=== PATIENT | female | born 1955 | race Caucasian/White ===

== ENCOUNTER 2019-04-16 16:14 | Observation (INO) | payer MEDICARE, OTHER ==
[2019-04-16] MEDS ORDERED: Sodium Chloride 0.9% 10 ML Syringe FLUSH PRN (16:27)
[2019-04-16] MEDS ORDERED: Sodium Chloride 0.9% 2.5 ML Syringe FLUSH PRN (16:27)
--- NOTE | 2019-04-16 16:39 | EDM.PDOC ---
ED HPI GENERAL MEDICAL PROBLEM - General Chief Complaint: Gastrointestinal Problem Stated Complaint: BLOOD IN STOOL Time Seen by Provider: 04/16/19 16:15 Source of Information: Reports: Patient History Limitations: Reports: No Limitations - History of Present Illness INITIAL COMMENTS - FREE TEXT/NARRATIVE: History of present illness: [Patient started having bloody stools at 11:00 this morning. He has had several episodes along with lower abdominal pain.She denies any fevers, chills, diarrhea or vomiting. Review of systems: As per history of present illness and below otherwise all systems reviewed and negative. Past medical history: As per history of present illness and as reviewed below otherwise noncontributory. Surgical history: As per history of present illness and as reviewed below otherwise noncontributory. Social history: No reported history of drug or alcohol abuse. Family history: As per history of present illness and as reviewed below otherwise noncontributory. Physical exam: General: Well developed, well nourished in NAD HEENT: Atraumatic, normocephalic, pupils reactive, negative for conjunctival pallor or scleral icterus, mucous membranes moist, throat clear, neck supple, nontender, trachea midline. Lungs: Clear to auscultation, breath sounds equal bilaterally, chest nontender. Heart: S1S2, regular, negative for clicks, rubs, or JVD. Abdomen: NABS, Soft, nondistended, nontender. Negative for masses or hepatosplenomegaly. Negative for costovertebral tenderness. Pelvis: Stable nontender. Genitourinary: Deferred. Recta- guaiac negative Extremities: Atraumatic, negative for cords or calf pain. Neurovascular unremarkable. Neuro: Awake, alert, oriented. Cranial nerves II through XII unremarkable. Cerebellum unremarkable. Motor and sensory unremarkable throughout. Exam nonfocal. Skin:warm and dry Diagnostics: CBC, chemistry, INR, PT PTT, type and screen Therapeutics: None ED Course: Stable, patient had one episode of bright red bloody stool while in the ED.discussed case with Dr. Gibson she does not feel strongly that way. Patient states or goes and she will followent in clinic for consult if she is hospitalized. Dr. Babb agrees to admit for obs. Impression: bright red blood per rectum Prescriptions: none Plan: admit for observation Definitive disposition and diagnosis as appropriate pending reevaluation and review of above. - Related Data Allergies Allergy/AdvReac Type Severity Reaction Status Date / Time nitrofurantoin Allergy Nausea and Verified 04/16/19 21:14 Vomiting Home Meds: Home Meds ClonazePAM [KlonoPIN] 0.5 mg PO BEDTIME 04/16/19 [History] Famotidine 20 mg PO BID 04/16/19 [History] Metoprolol Succinate 25 mg PO BID 04/16/19 [History] Pantoprazole [ProTONIX] 40 mg PO QID 04/16/19 [History] Rosuvastatin [Crestor] 10 mg PO DAILY 04/16/19 [History] Trospium [Sanctura] 20 mg PO DAILY 04/16/19 [History] metFORMIN [Glucophage] 500 mg PO BID 04/16/19 [History] traZODone HCl [Trazodone HCl] 100 mg PO BEDTIME 04/16/19 [History] Past Medical History HEENT History: Reports: Impaired Vision Cardiovascular History: Reports: [place] Respiratory History: Reports: None Gastrointestinal History: Reports: None Genitourinary History: Reports: None 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 Musculoskeletal History: Reports: None Neurological History: Reports: None Psychiatric History: Reports: None Endocrine/Metabolic History: Reports: Diabetes, Type II Hematologic History: Reports: None Immunologic History: Reports: None Oncologic (Cancer) History: Reports: None Dermatologic History: Reports: None - Past Surgical History Head Surgeries/Procedures: Reports: None HEENT Surgical History: Reports: Cataract Surgery Cardiovascular Surgical History: Reports: None Respiratory Surgical History: Reports: None GI Surgical History: Reports: None Female Surgical History: Reports: None Musculoskeletal Surgical History: Reports: None Oncologic Surgical History: Reports: None Dermatological Surgical History: Reports: None Social & Family History - Family History Family Medical History: Noncontributory - Tobacco Use Smoking Status *Q: Never Smoker Second Hand Smoke Exposure: No - Caffeine Use Caffeine Use: Reports: Coffee - Recreational Drug Use Recreational Drug Use: No ED ROS GENERAL - Review of Systems Review Of Systems: See Below ED EXAM, GI/ABD - Physical Exam Exam: See Below Course - Vital Signs Last Recorded V/S: Last Vital Signs Temp 99.9 F 04/17/19 03:48 Pulse 95 04/16/19 16:23 Resp 17 04/17/19 03:48 BP 121/60 04/17/19 03:48 Pulse Ox 91 L 04/17/19 03:48 - Orders/Labs/Meds Orders: Active Orders 24 hr Category Date Time Status Patient Status [ADT] Stat ADT 04/16/19 18:32 Active Sodium Chloride 0.9% [Saline Flush] Med 04/16/19 16:27 Active 10 ml FLUSH ASDIRECTED PRN Sodium Chloride 0.9% [Saline Flush] Med 04/16/19 16:27 Active 2.5 ml FLUSH ASDIRECTED PRN Saline Lock Insert [OM.PC] Stat Oth 04/16/19 16:27 Ordered Medication Orders Clonazepam (Klonopin) 0.5 mg PO BEDTIME CESAR Last Admin: 04/16/19 23:14 Dose: 0.5 mg Pantoprazole Sodium 40 mg/ (Sodium Chloride) 10 mls @ 300 mls/hr IV Q24H CESAR Last Admin: 04/16/19 23:15 Dose: 300 mls/hr Sodium Chloride (Normal Saline) 1,000 mls @ 125 mls/hr IV ASDIRECTED CESAR Insulin Aspart (Novolog) 0 unit SUBCUT Q6H CESAR; Protocol Last Admin: 04/17/19 04:51 Dose: 1 unit Admin: 04/16/19 23:24 Dose: Not Given Sodium Chloride (Saline Flush) 10 ml FLUSH ASDIRECTED PRN PRN Reason: Keep Vein Open Sodium Chloride (Saline Flush) 2.5 ml FLUSH ASDIRECTED PRN PRN Reason: Keep Vein Open Trazodone HCl (Trazodone Hcl) 100 mg PO DAILY [facility] Labs: Laboratory Tests 04/16/19 04/16/19 04/16/19 Range/Units 16:37 16:37 16:37 WBC 11.27 H (4.0-11.0) K/uL RBC 4.64 (4.30-5.90) M/uL Hgb 14.0 (12.0-16.0) g/dL Hct 43.1 (36.0-46.0) % MCV 92.9 (80.0-98.0) fL MCH 30.2 (27.0-32.0) pg MCHC 32.5 (31.0-37.0) g/dL RDW Std Deviation 46.7 (28.0-62.0) fl RDW Coeff of Jyotsna 14 (11.0-15.0) % Plt Count 191 (150-400) K/uL MPV 9.50 (7.40-12.00) fL Neut % (Auto) 84.9 H (48.0-80.0) % Lymph % (Auto) 8.7 L (16.0-40.0) % [place] % (Auto) 6.0 (0.0-15.0) % Eos % (Auto) 0.2 (0.0-7.0) % Baso % (Auto) 0.2 (0.0-1.5) % Neut # (Auto) 9.6 H (1.4-5.7) K/uL Lymph # (Auto) 1.0 (0.6-2.4) K/uL [place] # (Auto) 0.7 (0.0-0.8) K/uL Eos # (Auto) 0.0 (0.0-0.7) K/uL Baso # (Auto) 0.0 (0.0-0.1) K/uL Nucleated RBC % 0.0 /100WBC Nucleated RBCs # 0 K/uL INR 1.01 APTT 24.9 (18.6-31.3) SEC Sodium 143 (136-145) mmol/L Potassium 3.8 (3.5-5.1) mmol/L Chloride 104 (98-107) mmol/L Carbon Dioxide 27.2 (21.0-32.0) mmol/L BUN 22 H (7.0-18.0) mg/dL Creatinine 1.1 H (0.6-1.0) mg/dL Est Cr Clr Drug Dosing 37.96 mL/min Estimated GFR (MDRD) 49.7 ml/min Glucose 171 H (74-106) mg/dL Calcium 9.2 (8.5-10.1) mg/dL Total Bilirubin 0.6 (0.2-1.0) mg/dL AST 21 (15-37) IU/L ALT 27 (14-63) IU/L Alkaline Phosphatase 108 (46-116) U/L Total Protein 8.2 (6.4-8.2) g/dL Albumin 4.1 (3.4-5.0) g/dL Globulin 4.1 H (2.6-4.0) g/dL Albumin/Globulin Ratio 1.0 (0.9-1.6) Blood Type Antibody Screen 04/16/19 Range/Units 16:37 WBC (4.0-11.0) K/uL RBC (4.30-5.90) M/uL Hgb (12.0-16.0) g/dL Hct (36.0-46.0) % MCV (80.0-98.0) fL MCH (27.0-32.0) pg MCHC (31.0-37.0) g/dL RDW Std Deviation (28.0-62.0) fl RDW Coeff of Jyotsna (11.0-15.0) % Plt Count (150-400) K/uL MPV (7.40-12.00) fL Neut % (Auto) (48.0-80.0) % Lymph % (Auto) (16.0-40.0) % [place] % (Auto) (0.0-15.0) % Eos % (Auto) (0.0-7.0) % Baso % (Auto) (0.0-1.5) % Neut # (Auto) (1.4-5.7) K/uL Lymph # (Auto) (0.6-2.4) K/uL [place] # (Auto) (0.0-0.8) K/uL Eos # (Auto) (0.0-0.7) K/uL Baso # (Auto) (0.0-0.1) K/uL Nucleated RBC % /100WBC Nucleated RBCs # K/uL INR APTT (18.6-31.3) SEC Sodium (136-145) mmol/L Potassium (3.5-5.1) mmol/L Chloride (98-107) mmol/L Carbon Dioxide (21.0-32.0) mmol/L BUN (7.0-18.0) mg/dL Creatinine (0.6-1.0) mg/dL Est Cr Clr Drug Dosing mL/min Estimated GFR (MDRD) ml/min Glucose (74-106) mg/dL Calcium (8.5-10.1) mg/dL Total Bilirubin (0.2-1.0) mg/dL AST (15-37) IU/L ALT (14-63) IU/L Alkaline Phosphatase (46-116) U/L Total Protein (6.4-8.2) g/dL Albumin (3.4-5.0) g/dL Globulin (2.6-4.0) g/dL Albumin/Globulin Ratio (0.9-1.6) Blood Type A POSITIVE Antibody Screen NEGATIVE Meds: Medications Generic Name Dose Route Start Last Admin Trade Name Ross PRN Reason Stop Dose Admin Clonazepam 0.5 mg 04/16/19 21:00 04/16/19 23:14 Klonopin PO 0.5 mg BEDTIME CESAR Administration Pantoprazole Sodium 40 mg/ 10 mls @ 300 mls/hr 04/16/19 22:45 04/16/19 23:15 Sodium Chloride IV 300 mls/hr Q24H CESAR Administration Sodium Chloride 1,000 mls @ 125 mls/hr 04/16/19 22:45 Normal Saline IV ASDIRECTED CESAR Insulin Aspart 0 unit 04/16/19 22:45 04/17/19 04:51 Novolog SUBCUT 1 unit Q6H CESAR Administration Protocol Sodium Chloride 10 ml 04/16/19 16:27 Saline Flush FLUSH ASDIRECTED PRN Keep Vein Open Sodium Chloride 2.5 ml 04/16/19 16:27 Saline Flush FLUSH ASDIRECTED PRN Keep Vein Open Trazodone HCl 100 mg 04/17/19 09:00 Trazodone Hcl PO DAILY CESAR Discontinued Medications Generic Name Dose Route Start Last Admin Trade Name Ross PRN Reason Stop Dose Admin Iopamidol 100 ml 04/16/19 17:50 04/16/19 17:50 Isovue Multipack-370 (76%) IVPUSH 04/16/19 17:51 100 ml ONETIME STA Administration Departure - Departure Time of Disposition: 19:03 Disposition: Home, Self-Care 01 Condition: Good Clinical Impression: Bright red blood per rectum - Discharge Information *PRESCRIPTION DRUG MONITORING PROGRAM REVIEWED*: Not Applicable *COPY OF PRESCRIPTION DRUG MONITORING REPORT IN PATIENT PAT: Not Applicable - My Orders Last 24 Hours: My Active Orders 04/16/19 16:27 Sodium Chloride 0.9% [Saline Flush] 10 ml FLUSH ASDIRECTED PRN Sodium Chloride 0.9% [Saline Flush] 2.5 ml FLUSH ASDIRECTED PRN Saline Lock Insert [OM.PC] Stat 04/16/19 18:32 Patient Status [ADT] Stat - Assessment/Plan Last 24 Hours: My Active Orders 04/16/19 16:27 Sodium Chloride 0.9% [Saline Flush] 10 ml FLUSH ASDIRECTED PRN Sodium Chloride 0.9% [Saline Flush] 2.5 ml FLUSH ASDIRECTED PRN Saline Lock Insert [OM.PC] Stat 04/16/19 18:32 Patient Status [ADT] Stat
[2019-04-16 17:16] LABS: CARBON DIOXIDE,CO2 27.2 mmol/L (21.0-32.0); POTASSIUM,K 3.8 mmol/L (3.5-5.1)
[2019-04-16] MEDS ORDERED: Iopamidol 755 MG/ML 500 ML Multipack Bottle IVPUSH STA (17:50)
--- NOTE | 2019-04-16 18:07 | CT ---
HISTORY: Abdominal pain. COMPARISON: None. TECHNIQUE: Axial images were obtained through the abdomen pelvis following 100 cc of Isovue-370 intravenous contrast. FINDINGS: The lung bases are clear. Decreased attenuation of the liver may represent fatty infiltration. The spleen is normal in size. The pancreas, adrenal glands and kidneys are within normal. The duodenal diverticulum is noted the bowel is normal in caliber. No evidence for bowel obstruction. Degenerative changes in the spine. IMPRESSION: No acute abnormality. Please note that all CT scans at this facility use dose modulation, iterative reconstruction, and/or weight-based dosing when appropriate to reduce radiation dose to as low as reasonably achievable. Dictated by Daniela Duffy MD @ Apr 16 2019 6:05PM Signed by Dr. Daniela Duffy @ Apr 16 2019 6:05PM
--- NOTE | 2019-04-16 22:42 | PCM.HP.2 ---
H&P History of Present Illness - General Date of Service: 04/16/19 Admit Problem/Dx: Admission Diagnosis/Problem Admission Diagnosis/Problem Bleeding from anus - History of Present Illness Initial Comments - Free Text/Narative: 64 yo female with pmh of DM and HTN who presents with one day history of blood per rectum. Patient reports since this morning multiple bloody bowel movements. She reports some mild abdominal cramping. CT can of abdomen was normal. - Related Data Allergies/Adverse Reactions: Allergies Allergy/AdvReac Type Severity Reaction Status Date / Time nitrofurantoin Allergy Nausea and Verified 04/16/19 21:14 Vomiting Home Medications: Home Meds ClonazePAM [KlonoPIN] 0.5 mg PO BEDTIME 04/16/19 [History] Famotidine 20 mg PO BID 04/16/19 [History] Metoprolol Succinate 25 mg PO BID 04/16/19 [History] Pantoprazole [ProTONIX] 40 mg PO QID 04/16/19 [History] Rosuvastatin [Crestor] 10 mg PO DAILY 04/16/19 [History] Trospium [Sanctura] 20 mg PO DAILY 04/16/19 [History] metFORMIN [Glucophage] 500 mg PO BID 04/16/19 [History] traZODone HCl [Trazodone HCl] 100 mg PO BEDTIME 04/16/19 [History] Past Medical History HEENT History: Reports: Impaired Vision Cardiovascular History: Reports: [place] Respiratory History: Reports: None Gastrointestinal History: Reports: None Genitourinary History: Reports: None 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 Musculoskeletal History: Reports: None Neurological History: Reports: None Psychiatric History: Reports: None Endocrine/Metabolic History: Reports: Diabetes, Type II Hematologic History: Reports: None Immunologic History: Reports: None Oncologic (Cancer) History: Reports: None Dermatologic History: Reports: None - Past Surgical History Head Surgeries/Procedures: Reports: None HEENT Surgical History: Reports: Cataract Surgery Cardiovascular Surgical History: Reports: None Respiratory Surgical History: Reports: None GI Surgical History: Reports: None Female Surgical History: Reports: None Musculoskeletal Surgical History: Reports: None Oncologic Surgical History: Reports: None Dermatological Surgical History: Reports: None Social & Family History - Family History Family Medical History: Noncontributory - Tobacco Use Smoking Status *Q: Former Smoker Used Tobacco, but Quit: Yes Month/Year Tobacco Last Used: 1990 Second Hand Smoke Exposure: Yes - Caffeine Use Caffeine Use: Reports: Coffee - Recreational Drug Use Recreational Drug Use: No H&P Review of Systems - Review of Systems: Review Of Systems: ROS reveals no pertinent complaints other than HPI. Exam - Exam Exam: See Below - Vital Signs Vital Signs: Last Vital Signs Temp 36.5 C 04/16/19 19:34 Pulse 95 04/16/19 16:23 Resp 16 04/16/19 19:34 BP 122/59 L 04/16/19 19:34 Pulse Ox 94 L 04/16/19 19:34 Weight: 83.4 kg - Exam General: Alert, Oriented HEENT: Mucosa Moist & [place] Neck: Supple, Trachea Midline Lungs: Clear to Auscultation, Normal Respiratory Effort Cardiovascular: Regular Rate, Regular Rhythm GI/Abdominal Exam: Normal Bowel Sounds, Soft, Non-Tender Rectal (Female) Exam: Other (deferred as was just performed in ED) Extremities: Non-Tender, No Pedal Edema Skin: Warm, Dry, Intact - Patient Data Lab Results Last 24 hrs: Laboratory Results - last 24 hr 04/16/19 04/16/19 04/16/19 Range/Units 16:37 16:37 16:37 WBC 11.27 H (4.0-11.0) K/uL RBC 4.64 (4.30-5.90) M/uL Hgb 14.0 (12.0-16.0) g/dL Hct 43.1 (36.0-46.0) % MCV 92.9 (80.0-98.0) fL MCH 30.2 (27.0-32.0) pg MCHC 32.5 (31.0-37.0) g/dL RDW Std Deviation 46.7 (28.0-62.0) fl RDW Coeff of Jyotsna 14 (11.0-15.0) % Plt Count 191 (150-400) K/uL MPV 9.50 (7.40-12.00) fL Neut % (Auto) 84.9 H (48.0-80.0) % Lymph % (Auto) 8.7 L (16.0-40.0) % [place] % (Auto) 6.0 (0.0-15.0) % Eos % (Auto) 0.2 (0.0-7.0) % Baso % (Auto) 0.2 (0.0-1.5) % Neut # (Auto) 9.6 H (1.4-5.7) K/uL Lymph # (Auto) 1.0 (0.6-2.4) K/uL [place] # (Auto) 0.7 (0.0-0.8) K/uL Eos # (Auto) 0.0 (0.0-0.7) K/uL Baso # (Auto) 0.0 (0.0-0.1) K/uL Nucleated RBC % 0.0 /100WBC Nucleated RBCs # 0 K/uL INR 1.01 APTT 24.9 (18.6-31.3) SEC Sodium 143 (136-145) mmol/L Potassium 3.8 (3.5-5.1) mmol/L Chloride 104 (98-107) mmol/L Carbon Dioxide 27.2 (21.0-32.0) mmol/L BUN 22 H (7.0-18.0) mg/dL Creatinine 1.1 H (0.6-1.0) mg/dL Est Cr Clr Drug Dosing 37.96 mL/min Estimated GFR (MDRD) 49.7 ml/min Glucose 171 H (74-106) mg/dL Calcium 9.2 (8.5-10.1) mg/dL Total Bilirubin 0.6 (0.2-1.0) mg/dL AST 21 (15-37) IU/L ALT 27 (14-63) IU/L Alkaline Phosphatase 108 (46-116) U/L Total Protein 8.2 (6.4-8.2) g/dL Albumin 4.1 (3.4-5.0) g/dL Globulin 4.1 H (2.6-4.0) g/dL Albumin/Globulin Ratio 1.0 (0.9-1.6) Blood Type Antibody Screen 04/16/19 Range/Units 16:37 WBC (4.0-11.0) K/uL RBC (4.30-5.90) M/uL Hgb (12.0-16.0) g/dL Hct (36.0-46.0) % MCV (80.0-98.0) fL MCH (27.0-32.0) pg MCHC (31.0-37.0) g/dL RDW Std Deviation (28.0-62.0) fl RDW Coeff of Jyotsna (11.0-15.0) % Plt Count (150-400) K/uL MPV (7.40-12.00) fL Neut % (Auto) (48.0-80.0) % Lymph % (Auto) (16.0-40.0) % [place] % (Auto) (0.0-15.0) % Eos % (Auto) (0.0-7.0) % Baso % (Auto) (0.0-1.5) % Neut # (Auto) (1.4-5.7) K/uL Lymph # (Auto) (0.6-2.4) K/uL [place] # (Auto) (0.0-0.8) K/uL Eos # (Auto) (0.0-0.7) K/uL Baso # (Auto) (0.0-0.1) K/uL Nucleated RBC % /100WBC Nucleated RBCs # K/uL INR APTT (18.6-31.3) SEC Sodium (136-145) mmol/L Potassium (3.5-5.1) mmol/L Chloride (98-107) mmol/L Carbon Dioxide (21.0-32.0) mmol/L BUN (7.0-18.0) mg/dL Creatinine (0.6-1.0) mg/dL Est Cr Clr Drug Dosing mL/min Estimated GFR (MDRD) ml/min Glucose (74-106) mg/dL Calcium (8.5-10.1) mg/dL Total Bilirubin (0.2-1.0) mg/dL AST (15-37) IU/L ALT (14-63) IU/L Alkaline Phosphatase (46-116) U/L Total Protein (6.4-8.2) g/dL Albumin (3.4-5.0) g/dL Globulin (2.6-4.0) g/dL Albumin/Globulin Ratio (0.9-1.6) Blood Type A POSITIVE Antibody Screen NEGATIVE Result Diagrams: 04/17/19 05:40 04/17/19 05:40 Problem List Initiated/Reviewed/Updated: Yes Orders Last 24hrs: Active Orders 24 hr Category Date Time Status Patient Status [ADT] Stat ADT 04/16/19 18:32 Active Antiembolic Devices [RC] PER UNIT ROUTINE Care 04/16/19 22:37 Ordered Blood Glucose Check, Bedside [RC] Q6HR Care 04/16/19 22:36 Ordered Notify Provider Consults [RC] ASDIRECTED Care 04/16/19 22:24 Active Oxygen Therapy [RC] PRN Care 04/16/19 22:36 Ordered Up ad Uma [RC] ASDIRECTED Care 04/16/19 22:36 Ordered VTE/DVT Education [RC] PER UNIT ROUTINE Care 04/16/19 22:36 Ordered Vital Signs [RC] Q4H Care 04/16/19 22:36 Ordered Consult to Physician [CONS] Routine Cons 04/16/19 22:23 Active Nothing per Oral Now Diet [DIET] Diet 04/16/19 Breakfast Ordered BASIC METABOLIC PANEL,BMP [CHEM] AM Lab 04/17/19 05:11 Ordered CBC WITH AUTO DIFF [HEME] AM Lab 04/17/19 05:11 Ordered CBC WITH AUTO DIFF [HEME] Routine Lab 04/16/19 22:36 Ordered ClonazePAM [KlonoPIN] Med 04/16/19 21:00 Ordered 0.5 mg PO BEDTIME Pantoprazole [ProTONIX IV] 40 mg Med 04/16/19 22:45 Ordered Sodium Chloride 0.9% [Normal Saline] 10 ml IV Q24H Sodium Chloride 0.9% [Saline Flush] Med 04/16/19 16:27 Active 10 ml FLUSH ASDIRECTED PRN Sodium Chloride 0.9% [Saline Flush] Med 04/16/19 16:27 Active 2.5 ml FLUSH ASDIRECTED PRN traZODone HCl Med 04/17/19 09:00 Ordered 100 mg PO DAILY Saline Lock Insert [OM.PC] Stat Oth 04/16/19 16:27 Ordered Sequential Compression Device [OM.PC] Per Unit Routine Oth 04/16/19 22:37 Ordered Resuscitation Status Routine Resus Stat 04/16/19 22:36 Ordered Medication Orders Clonazepam (Klonopin) 0.5 mg PO BEDTIME CESAR Pantoprazole Sodium 40 mg/ (Sodium Chloride) 10 mls @ 300 mls/hr IV Q24H CESAR Sodium Chloride (Saline Flush) 10 ml FLUSH ASDIRECTED PRN PRN Reason: Keep Vein Open Sodium Chloride (Saline Flush) 2.5 ml FLUSH ASDIRECTED PRN PRN Reason: Keep Vein Open Trazodone HCl (Trazodone Hcl) 100 mg PO DAILY CESAR Assessment/Plan Comment:: 64 yo female admitted with lower GI Bleed. Currently hemodynamically stable. We will trend Hgb, keep NPO and hydrate with IV fluids. Dr. Gibson has been consulted.
[2019-04-16] MEDS: ClonazePAM 0.5 MG Tab PO SCH (23:14)
[2019-04-16] MEDS: Pantoprazole 40 MG in Sodium Chloride 0.9% 10 ML IV SCH (23:15)
[2019-04-16] MEDS: Insulin Aspart 100 Units/ML 3 ML Pen SUBCUT SCH (23:24)
[2019-04-17] MEDS: Insulin Aspart 100 Units/ML 3 ML Pen SUBCUT SCH ×4 (04:51→22:39)
[2019-04-17 06:07] LABS: BLOOD UREA NITROGEN,BUN 18 mg/dL (7.0-18.0); CARBON DIOXIDE,CO2 29.2 mmol/L (21.0-32.0); CHLORIDE,CL 103 mmol/L (98-107); GLUCOSE RANDOM 170 mg/dL (74-106); POTASSIUM,K 3.9 mmol/L (3.5-5.1); SODIUM,NA 141 mmol/L (136-145)
[2019-04-17] MEDS: Sodium Chloride 0.9% 1,000 ML IV SCH ×2 (08:21→17:01)
[2019-04-17] MEDS ORDERED: Bisacodyl 5 MG Tab PO ONE (10:29)
--- NOTE | 2019-04-17 11:01 | PCM.PN ---
- General Info Date of Service: 04/17/19 Subjective Update: no acute events overnight. had BM this morning. States bright red blood on stool. No dark stools. no history of hemorrhoids. - Patient Data Vitals - Most Recent: Last Vital Signs Temp 37.7 C 04/17/19 03:48 Pulse 95 04/16/19 16:23 Resp 17 04/17/19 03:48 BP 121/60 04/17/19 03:48 Pulse Ox 91 L 04/17/19 03:48 Weight - Most Recent: 83.4 kg I&O - Last 24 Hours: Intake & Output 04/16/19 04/17/19 04/17/19 22:59 06:59 14:59 Output Total 500 Balance -500 Lab Results Last 24 Hours: Laboratory Results - last 24 hr 04/16/19 04/16/19 04/16/19 Range/Units 16:37 16:37 16:37 WBC 11.27 H (4.0-11.0) K/uL RBC 4.64 (4.30-5.90) M/uL Hgb 14.0 (12.0-16.0) g/dL Hct 43.1 (36.0-46.0) % MCV 92.9 (80.0-98.0) fL MCH 30.2 (27.0-32.0) pg MCHC 32.5 (31.0-37.0) g/dL RDW Std Deviation 46.7 (28.0-62.0) fl RDW Coeff of Jyotsna 14 (11.0-15.0) % Plt Count 191 (150-400) K/uL MPV 9.50 (7.40-12.00) fL Neut % (Auto) 84.9 H (48.0-80.0) % Lymph % (Auto) 8.7 L (16.0-40.0) % [place] % (Auto) 6.0 (0.0-15.0) % Eos % (Auto) 0.2 (0.0-7.0) % Baso % (Auto) 0.2 (0.0-1.5) % Neut # (Auto) 9.6 H (1.4-5.7) K/uL Lymph # (Auto) 1.0 (0.6-2.4) K/uL [place] # (Auto) 0.7 (0.0-0.8) K/uL Eos # (Auto) 0.0 (0.0-0.7) K/uL Baso # (Auto) 0.0 (0.0-0.1) K/uL Nucleated RBC % 0.0 /100WBC Nucleated RBCs # 0 K/uL INR 1.01 APTT 24.9 (18.6-31.3) SEC Sodium 143 (136-145) mmol/L Potassium 3.8 (3.5-5.1) mmol/L Chloride 104 (98-107) mmol/L Carbon Dioxide 27.2 (21.0-32.0) mmol/L BUN 22 H (7.0-18.0) mg/dL Creatinine 1.1 H (0.6-1.0) mg/dL Est Cr Clr Drug Dosing 37.96 mL/min Estimated GFR (MDRD) 49.7 ml/min Glucose 171 H (74-106) mg/dL POC Glucose (60-110) mg/dL Calcium 9.2 (8.5-10.1) mg/dL Total Bilirubin 0.6 (0.2-1.0) mg/dL AST 21 (15-37) IU/L ALT 27 (14-63) IU/L Alkaline Phosphatase 108 (46-116) U/L Total Protein 8.2 (6.4-8.2) g/dL Albumin 4.1 (3.4-5.0) g/dL Globulin 4.1 H (2.6-4.0) g/dL Albumin/Globulin Ratio 1.0 (0.9-1.6) Blood Type Antibody Screen 04/16/19 04/16/19 04/16/19 Range/Units 16:37 23:05 23:23 WBC 10.98 (4.0-11.0) K/uL RBC 4.50 (4.30-5.90) M/uL Hgb 13.5 (12.0-16.0) g/dL Hct 41.7 (36.0-46.0) % MCV 92.7 (80.0-98.0) fL MCH 30.0 (27.0-32.0) pg MCHC 32.4 (31.0-37.0) g/dL RDW Std Deviation 47.1 (28.0-62.0) fl RDW Coeff of Jyotsna 14 (11.0-15.0) % Plt Count 173 (150-400) K/uL MPV 9.10 (7.40-12.00) fL Neut % (Auto) 79.6 (48.0-80.0) % Lymph % (Auto) 11.7 L (16.0-40.0) % [place] % (Auto) 8.1 (0.0-15.0) % Eos % (Auto) 0.5 (0.0-7.0) % Baso % (Auto) 0.1 (0.0-1.5) % Neut # (Auto) 8.8 H (1.4-5.7) K/uL Lymph # (Auto) 1.3 (0.6-2.4) K/uL [place] # (Auto) 0.9 H (0.0-0.8) K/uL Eos # (Auto) 0.1 (0.0-0.7) K/uL Baso # (Auto) 0.0 (0.0-0.1) K/uL Nucleated RBC % 0.0 /100WBC Nucleated RBCs # 0 K/uL INR APTT (18.6-31.3) SEC Sodium (136-145) mmol/L Potassium (3.5-5.1) mmol/L Chloride (98-107) mmol/L Carbon Dioxide (21.0-32.0) mmol/L BUN (7.0-18.0) mg/dL Creatinine (0.6-1.0) mg/dL Est Cr Clr Drug Dosing mL/min Estimated GFR (MDRD) ml/min Glucose (74-106) mg/dL POC Glucose 124 H (60-110) mg/dL Calcium (8.5-10.1) mg/dL Total Bilirubin (0.2-1.0) mg/dL AST (15-37) IU/L ALT (14-63) IU/L Alkaline Phosphatase (46-116) U/L Total Protein (6.4-8.2) g/dL Albumin (3.4-5.0) g/dL Globulin (2.6-4.0) g/dL Albumin/Globulin Ratio (0.9-1.6) Blood Type A POSITIVE Antibody Screen NEGATIVE 11/10/19 11/10/19 11/10/19 Range/Units 04:47 05:40 05:40 WBC 11.44 H (4.0-11.0) K/uL RBC 4.41 (4.30-5.90) M/uL Hgb 13.3 (12.0-16.0) g/dL Hct 40.2 (36.0-46.0) % MCV 91.2 (80.0-98.0) fL MCH 30.2 (27.0-32.0) pg MCHC 33.1 (31.0-37.0) g/dL RDW Std Deviation 46.3 (28.0-62.0) fl RDW Coeff of Jyotsna 14 (11.0-15.0) % Plt Count 190 (150-400) K/uL MPV 9.40 (7.40-12.00) fL Neut % (Auto) 81.9 H (48.0-80.0) % Lymph % (Auto) 9.4 L (16.0-40.0) % [place] % (Auto) 8.4 (0.0-15.0) % Eos % (Auto) 0.2 (0.0-7.0) % Baso % (Auto) 0.1 (0.0-1.5) % Neut # (Auto) 9.4 H (1.4-5.7) K/uL Lymph # (Auto) 1.1 (0.6-2.4) K/uL [place] # (Auto) 1.0 H (0.0-0.8) K/uL Eos # (Auto) 0.0 (0.0-0.7) K/uL Baso # (Auto) 0.0 (0.0-0.1) K/uL Nucleated RBC % 0.0 /100WBC Nucleated RBCs # 0 K/uL INR APTT (18.6-31.3) SEC Sodium 141 (136-145) mmol/L Potassium 3.9 (3.5-5.1) mmol/L Chloride 103 (98-107) mmol/L Carbon Dioxide 29.2 (21.0-32.0) mmol/L BUN 18 (7.0-18.0) mg/dL Creatinine 0.9 (0.6-1.0) mg/dL Est Cr Clr Drug Dosing 46.45 mL/min Estimated GFR (MDRD) > 60.0 ml/min Glucose 170 H (74-106) mg/dL POC Glucose 161 H (60-110) mg/dL Calcium 8.7 (8.5-10.1) mg/dL Total Bilirubin (0.2-1.0) mg/dL AST (15-37) IU/L ALT (14-63) IU/L Alkaline Phosphatase (46-116) U/L Total Protein (6.4-8.2) g/dL Albumin (3.4-5.0) g/dL Globulin (2.6-4.0) g/dL Albumin/Globulin Ratio (0.9-1.6) Blood Type Antibody Screen Rickey Results Last 24 Hours: Microbiology 04/17/19 01:25 Campylobacter Antigen Assay - Final Stool / Feces NEGATIVE CAMPYLOBACTER AG REFERENCE RANGE: NEGATIVE 04/17/19 01:25 Stool for WBCs - Final Stool / Feces POSITIVE FOR WBC'S REFERENCE RANGE: NO WBC SEEN Stool Occult Blood (RICKEY) - Final Med Orders - Current: Current Medications Clonazepam (Klonopin) 0.5 mg PO BEDTIME [facility] Last Admin: 04/16/19 23:14 Dose: 0.5 mg Pantoprazole Sodium 40 mg/ (Sodium Chloride) 10 mls @ 300 mls/hr IV Q24H [facility] Last Admin: 04/16/19 23:15 Dose: 300 mls/hr Sodium Chloride (Normal Saline) 1,000 mls @ 125 mls/hr IV ASDIRECTED [facility] Last Admin: 04/17/19 08:21 Dose: 125 mls/hr Insulin Aspart (Novolog) 0 unit SUBCUT Q6H [facility]; Protocol Last Admin: 04/17/19 04:51 Dose: 1 unit Polyethylene Glycol (Miralax) 119 gm PO ONETIME ONE Stop: 04/17/19 12:01 Polyethylene Glycol (Miralax) 119 gm PO ONETIME ONE Stop: 04/17/19 16:01 Sodium Chloride (Saline Flush) 10 ml FLUSH ASDIRECTED PRN PRN Reason: Keep Vein Open Sodium Chloride (Saline Flush) 2.5 ml FLUSH ASDIRECTED PRN PRN Reason: Keep Vein Open Trazodone HCl (Trazodone) 100 mg PO BEDTIME [facility] Discontinued Medications Bisacodyl (Dulcolax) 20 mg PO ONETIME ONE Stop: 04/17/19 10:30 Iopamidol (Isovue Multipack-370 (76%)) 100 ml IVPUSH ONETIME STA Stop: 04/16/19 17:51 Last Admin: 04/16/19 17:50 Dose: 100 ml - Exam General: Alert, Oriented, Cooperative, No Acute Distress Lungs: Clear to Auscultation, Normal Respiratory Effort. No: Crackles, Wheezing Cardiovascular: Regular Rate, Regular Rhythm GI/Abdominal Exam: Normal Bowel Sounds, Soft, Non-Tender Extremities: Normal Inspection, No Pedal Edema - Problem List Review Problem List Initiated/Reviewed/Updated: Yes - Plan Plan:: A: 1. Bright red blood per rectum 2. constipation p: 1. NPO. Continue protonix. Dr. blanca plans for colonoscopy tomorrow morning. Dispo: 1-2 days.
[2019-04-17 11:31] LABS: HEMOGLOBIN A1C 6.6 % (4.5-6.2)
[2019-04-17] MEDS ORDERED: Polyethylene Glycol 3350 Powder 17 GM Packet PO ONE ×2 (12:00→16:00)
--- NOTE | 2019-04-17 12:58 | PCM.CONS ---
H&P History of Present Illness - General Date of Service: 04/17/19 Admit Problem/Dx: Admission Diagnosis/Problem Admission Diagnosis/Problem Bleeding from anus Source of Information: Patient History Limitations: Reports: No Limitations - History of Present Illness Initial Comments - Free Text/Narative: Patient is a 64 year old female who presented with episodes of BRBPR starting today. She has a family history of her sister having colon cancer. She thinks her last colonoscopy was 5 years ago. She had 2 bowel movements with blood streaks on the stool. She had some lower abdominal discomfort. She came to the ER. CBC showed a mildly elevated WBC but a normal hemoglobin. She had a normal CT scan of the abdomen. While in the ER she had one bloody BM. She was admitted to medicine. She had 2 more BMs overnight. Her hemoglobin has remained stable. She complains of dizziness when first sitting up in bed. Denies melena. - Related Data Allergies/Adverse Reactions: Allergies Allergy/AdvReac Type Severity Reaction Status Date / Time nitrofurantoin Allergy Nausea and Verified 04/16/19 21:14 Vomiting Home Medications: Home Meds ClonazePAM [KlonoPIN] 0.5 mg PO BEDTIME 04/16/19 [History] Famotidine 20 mg PO BID 04/16/19 [History] Metoprolol Succinate 25 mg PO BID 04/16/19 [History] Pantoprazole [ProTONIX] 40 mg PO QID 04/16/19 [History] Rosuvastatin [Crestor] 10 mg PO DAILY 04/16/19 [History] Trospium [Sanctura] 20 mg PO DAILY 04/16/19 [History] metFORMIN [Glucophage] 500 mg PO BID 04/16/19 [History] traZODone HCl [Trazodone HCl] 100 mg PO BEDTIME 04/16/19 [History] Past Medical History HEENT History: Reports: Impaired Vision Cardiovascular History: Reports: MS Respiratory History: Reports: None Gastrointestinal History: Reports: None Genitourinary History: Reports: None 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 Musculoskeletal History: Reports: None Neurological History: Reports: None Psychiatric History: Reports: None Endocrine/Metabolic History: Reports: Diabetes, Type II Hematologic History: Reports: None Immunologic History: Reports: None Oncologic (Cancer) History: Reports: None Dermatologic History: Reports: None - Past Surgical History Head Surgeries/Procedures: Reports: None HEENT Surgical History: Reports: Cataract Surgery Cardiovascular Surgical History: Reports: None Respiratory Surgical History: Reports: None GI Surgical History: Reports: Colonoscopy Female Surgical History: Reports: None Musculoskeletal Surgical History: Reports: None Oncologic Surgical History: Reports: None Dermatological Surgical History: Reports: None Social & Family History - Family History Family Medical History: Noncontributory - Tobacco Use Smoking Status *Q: Never Smoker Used Tobacco, but Quit: Yes Month/Year Tobacco Last Used: 1990 Second Hand Smoke Exposure: No - Caffeine Use Caffeine Use: Reports: Coffee - Recreational Drug Use Recreational Drug Use: No H&P Review of Systems - Review of Systems: Review Of Systems: ROS reveals no pertinent complaints other than HPI. Exam - Exam Exam: See Below - Vital Signs Vital Signs: Last Vital Signs Temp 36.9 C 04/17/19 12:00 Pulse 87 04/17/19 12:00 Resp 15 04/17/19 12:00 BP 121/64 04/17/19 12:00 Pulse Ox 95 04/17/19 12:00 Weight: 83.4 kg - Exam General: Alert, Oriented, Cooperative HEENT: Conjunctiva Clear, Mucosa Moist & [place], Posterior Pharynx Clear Neck: Supple, Trachea Midline Lungs: Clear to Auscultation, Normal Respiratory Effort Cardiovascular: Regular Rate, Regular Rhythm GI/Abdominal Exam: Normal Bowel Sounds, Soft, Non-Tender, No Distention, No Mass (Female) Exam: Normal External Exam Rectal (Female) Exam: Normal Exam, Normal Rectal Tone, Heme - Stool Skin: Warm, Dry, Intact Neuro Extensive - Mental Status: Alert, Oriented x3 - Patient Data Lab Results Last 24 hrs: Laboratory Results - last 24 hr 04/16/19 04/16/19 04/16/19 Range/Units 16:37 16:37 16:37 WBC 11.27 H (4.0-11.0) K/uL RBC 4.64 (4.30-5.90) M/uL Hgb 14.0 (12.0-16.0) g/dL Hct 43.1 (36.0-46.0) % MCV 92.9 (80.0-98.0) fL MCH 30.2 (27.0-32.0) pg MCHC 32.5 (31.0-37.0) g/dL RDW Std Deviation 46.7 (28.0-62.0) fl RDW Coeff of Jyotsna 14 (11.0-15.0) % Plt Count 191 (150-400) K/uL MPV 9.50 (7.40-12.00) fL Neut % (Auto) 84.9 H (48.0-80.0) % Lymph % (Auto) 8.7 L (16.0-40.0) % [place] % (Auto) 6.0 (0.0-15.0) % Eos % (Auto) 0.2 (0.0-7.0) % Baso % (Auto) 0.2 (0.0-1.5) % Neut # (Auto) 9.6 H (1.4-5.7) K/uL Lymph # (Auto) 1.0 (0.6-2.4) K/uL [place] # (Auto) 0.7 (0.0-0.8) K/uL Eos # (Auto) 0.0 (0.0-0.7) K/uL Baso # (Auto) 0.0 (0.0-0.1) K/uL Nucleated RBC % 0.0 /100WBC Nucleated RBCs # 0 K/uL INR 1.01 APTT 24.9 (18.6-31.3) SEC Sodium 143 (136-145) mmol/L Potassium 3.8 (3.5-5.1) mmol/L Chloride 104 (98-107) mmol/L Carbon Dioxide 27.2 (21.0-32.0) mmol/L BUN 22 H (7.0-18.0) mg/dL Creatinine 1.1 H (0.6-1.0) mg/dL Est Cr Clr Drug Dosing 37.96 mL/min Estimated GFR (MDRD) 49.7 ml/min Glucose 171 H (74-106) mg/dL POC Glucose (60-110) mg/dL Hemoglobin A1c (4.5-6.2) % Calcium 9.2 (8.5-10.1) mg/dL Total Bilirubin 0.6 (0.2-1.0) mg/dL AST 21 (15-37) IU/L ALT 27 (14-63) IU/L Alkaline Phosphatase 108 (46-116) U/L Total Protein 8.2 (6.4-8.2) g/dL Albumin 4.1 (3.4-5.0) g/dL Globulin 4.1 H (2.6-4.0) g/dL Albumin/Globulin Ratio 1.0 (0.9-1.6) Blood Type Antibody Screen 04/16/19 04/16/19 04/16/19 Range/Units 16:37 23:05 23:23 WBC 10.98 (4.0-11.0) K/uL RBC 4.50 (4.30-5.90) M/uL Hgb 13.5 (12.0-16.0) g/dL Hct 41.7 (36.0-46.0) % MCV 92.7 (80.0-98.0) fL MCH 30.0 (27.0-32.0) pg MCHC 32.4 (31.0-37.0) g/dL RDW Std Deviation 47.1 (28.0-62.0) fl RDW Coeff of Jyotsna 14 (11.0-15.0) % Plt Count 173 (150-400) K/uL MPV 9.10 (7.40-12.00) fL Neut % (Auto) 79.6 (48.0-80.0) % Lymph % (Auto) 11.7 L (16.0-40.0) % [place] % (Auto) 8.1 (0.0-15.0) % Eos % (Auto) 0.5 (0.0-7.0) % Baso % (Auto) 0.1 (0.0-1.5) % Neut # (Auto) 8.8 H (1.4-5.7) K/uL Lymph # (Auto) 1.3 (0.6-2.4) K/uL [place] # (Auto) 0.9 H (0.0-0.8) K/uL Eos # (Auto) 0.1 (0.0-0.7) K/uL Baso # (Auto) 0.0 (0.0-0.1) K/uL Nucleated RBC % 0.0 /100WBC Nucleated RBCs # 0 K/uL INR APTT (18.6-31.3) SEC Sodium (136-145) mmol/L Potassium (3.5-5.1) mmol/L Chloride (98-107) mmol/L Carbon Dioxide (21.0-32.0) mmol/L BUN (7.0-18.0) mg/dL Creatinine (0.6-1.0) mg/dL Est Cr Clr Drug Dosing mL/min Estimated GFR (MDRD) ml/min Glucose (74-106) mg/dL POC Glucose 124 H (60-110) mg/dL Hemoglobin A1c (4.5-6.2) % Calcium (8.5-10.1) mg/dL Total Bilirubin (0.2-1.0) mg/dL AST (15-37) IU/L ALT (14-63) IU/L Alkaline Phosphatase (46-116) U/L Total Protein (6.4-8.2) g/dL Albumin (3.4-5.0) g/dL Globulin (2.6-4.0) g/dL Albumin/Globulin Ratio (0.9-1.6) Blood Type A POSITIVE Antibody Screen NEGATIVE 04/17/19 04/17/19 04/17/19 Range/Units 04:47 05:40 05:40 WBC 11.44 H (4.0-11.0) K/uL RBC 4.41 (4.30-5.90) M/uL Hgb 13.3 (12.0-16.0) g/dL Hct 40.2 (36.0-46.0) % MCV 91.2 (80.0-98.0) fL MCH 30.2 (27.0-32.0) pg MCHC 33.1 (31.0-37.0) g/dL RDW Std Deviation 46.3 (28.0-62.0) fl RDW Coeff of Jyotsna 14 (11.0-15.0) % Plt Count 190 (150-400) K/uL MPV 9.40 (7.40-12.00) fL Neut % (Auto) 81.9 H (48.0-80.0) % Lymph % (Auto) 9.4 L (16.0-40.0) % [place] % (Auto) 8.4 (0.0-15.0) % Eos % (Auto) 0.2 (0.0-7.0) % Baso % (Auto) 0.1 (0.0-1.5) % Neut # (Auto) 9.4 H (1.4-5.7) K/uL Lymph # (Auto) 1.1 (0.6-2.4) K/uL [place] # (Auto) 1.0 H (0.0-0.8) K/uL Eos # (Auto) 0.0 (0.0-0.7) K/uL Baso # (Auto) 0.0 (0.0-0.1) K/uL Nucleated RBC % 0.0 /100WBC Nucleated RBCs # 0 K/uL INR APTT (18.6-31.3) SEC Sodium 141 (136-145) mmol/L Potassium 3.9 (3.5-5.1) mmol/L Chloride 103 (98-107) mmol/L Carbon Dioxide 29.2 (21.0-32.0) mmol/L BUN 18 (7.0-18.0) mg/dL Creatinine 0.9 (0.6-1.0) mg/dL Est Cr Clr Drug Dosing 46.45 mL/min Estimated GFR (MDRD) > 60.0 ml/min Glucose 170 H (74-106) mg/dL POC Glucose 161 H (60-110) mg/dL Hemoglobin A1c (4.5-6.2) % Calcium 8.7 (8.5-10.1) mg/dL Total Bilirubin (0.2-1.0) mg/dL AST (15-37) IU/L ALT (14-63) IU/L Alkaline Phosphatase (46-116) U/L Total Protein (6.4-8.2) g/dL Albumin (3.4-5.0) g/dL Globulin (2.6-4.0) g/dL Albumin/Globulin Ratio (0.9-1.6) Blood Type Antibody Screen 04/17/19 04/17/19 Range/Units 05:40 11:23 WBC (4.0-11.0) K/uL RBC (4.30-5.90) M/uL Hgb (12.0-16.0) g/dL Hct (36.0-46.0) % MCV (80.0-98.0) fL MCH (27.0-32.0) pg MCHC (31.0-37.0) g/dL RDW Std Deviation (28.0-62.0) fl RDW Coeff of Jyotsna (11.0-15.0) % Plt Count (150-400) K/uL MPV (7.40-12.00) fL Neut % (Auto) (48.0-80.0) % Lymph % (Auto) (16.0-40.0) % [place] % (Auto) (0.0-15.0) % Eos % (Auto) (0.0-7.0) % Baso % (Auto) (0.0-1.5) % Neut # (Auto) (1.4-5.7) K/uL Lymph # (Auto) (0.6-2.4) K/uL [place] # (Auto) (0.0-0.8) K/uL Eos # (Auto) (0.0-0.7) K/uL Baso # (Auto) (0.0-0.1) K/uL Nucleated RBC % /100WBC Nucleated RBCs # K/uL INR APTT (18.6-31.3) SEC Sodium (136-145) mmol/L Potassium (3.5-5.1) mmol/L Chloride (98-107) mmol/L Carbon Dioxide (21.0-32.0) mmol/L BUN (7.0-18.0) mg/dL Creatinine (0.6-1.0) mg/dL Est Cr Clr Drug Dosing mL/min Estimated GFR (MDRD) ml/min Glucose (74-106) mg/dL POC Glucose 121 H (60-110) mg/dL Hemoglobin A1c 6.6 H (4.5-6.2) % Calcium (8.5-10.1) mg/dL Total Bilirubin (0.2-1.0) mg/dL AST (15-37) IU/L ALT (14-63) IU/L Alkaline Phosphatase (46-116) U/L Total Protein (6.4-8.2) g/dL Albumin (3.4-5.0) g/dL Globulin (2.6-4.0) g/dL Albumin/Globulin Ratio (0.9-1.6) Blood Type Antibody Screen Result Diagrams: 04/17/19 05:40 04/17/19 05:40 Rickey Results Last 24 hrs: Microbiology 04/17/19 01:25 Campylobacter Antigen Assay - Final Stool / Feces NEGATIVE CAMPYLOBACTER AG REFERENCE RANGE: NEGATIVE 04/17/19 01:25 Stool for WBCs - Final Stool / Feces POSITIVE FOR WBC'S REFERENCE RANGE: NO WBC SEEN Stool Occult Blood (RICKEY) - Final Consult PN Assessment/Plan (1) Bright red blood per rectum SNOMED Code(s): 41539308 Code(s): K62.5 - HEMORRHAGE OF ANUS AND RECTUM Current Visit: Yes Problem List Initiated/Reviewed/Updated: Yes My Orders Last 24 Hours: My Active Orders 04/17/19 01:25 CULTURE STOOL + CAMPY+SHIGATOX [RM] Routine 04/17/19 16:00 Polyethylene Glycol 3350 [MiraLAX] 119 gm PO ONETIME ONE 04/17/19 Lunch Clear Liquid Diet [DIET] Plan: Patient had a positive FOBT on stool studies. She is otherwise stable. I gave her the option of outpatient follow up but given her bloody BMs overnight the patient would prefer to have her scope as an inpatient which I agreed was reasonable. Will start bowel prep today. 20mg of dulcolax now, followed by 119gm of miralax at 12pm with 32oz of gatorade and given again at 4pm. We discussed the procedure, expected perioperative course and risks inclduing bleeding, infection and damage to surrounding structures including perforation. She verbalized understanding and wishes to proceed.
[2019-04-17] MEDS ORDERED: Ondansetron 4 MG/2 ML SDV IVPUSH PRN (18:35)
[2019-04-17] MEDS: ClonazePAM 0.5 MG Tab PO SCH (21:32)
[2019-04-17] MEDS: traZODone 50 MG Tab PO SCH (21:32)
[2019-04-17] MEDS: Pantoprazole 40 MG in Sodium Chloride 0.9% 10 ML IV SCH (21:45)
[2019-04-18] MEDS: Sodium Chloride 0.9% 1,000 ML IV SCH ×3 (00:58→16:58)
[2019-04-18] MEDS: Insulin Aspart 100 Units/ML 3 ML Pen SUBCUT SCH ×4 (05:48→22:43)
[2019-04-18 06:29] LABS: BLOOD UREA NITROGEN,BUN 8 mg/dL (7.0-18.0); CARBON DIOXIDE,CO2 25.6 mmol/L (21.0-32.0); CHLORIDE,CL 105 mmol/L (98-107); GLUCOSE RANDOM 155 mg/dL (74-106); POTASSIUM,K 3.3 mmol/L (3.5-5.1); SODIUM,NA 139 mmol/L (136-145)
--- NOTE | 2019-04-18 07:17 | PCM.PREANE ---
Preanesthetic Assessment - Anesthesia/Transfusion/Family Hx Anesthesia History: Prior Anesthesia Without Reaction Family History of Anesthesia Reaction: No Transfusion History: No Prior Transfusion(s) - Review of Systems General: No Symptoms Pulmonary: No Symptoms Cardiovascular: No Symptoms Gastrointestinal: No Symptoms Neurological: No Symptoms Other: Reports: None - Physical Assessment NPO Status Date: 04/18/19 NPO Status Time: 00:00 Vital Signs: Last Vital Signs Temp 99.3 F 04/18/19 05:00 Pulse 85 04/18/19 05:00 Resp 24 H 04/18/19 05:00 BP 100/55 L 04/18/19 05:00 Pulse Ox 90 L 04/18/19 05:00 Height: 5 ft 1.02 in Weight: 83.4 kg ASA Class: 3 Mental Status: Alert & Oriented x3 Airway Class: Mallampati = 3 Dentition: Reports: Normal Dentition Thyro-Mental Finger Breadths: 3 Mouth Opening Finger Breadths: 3 ROM/Head Extension: Full Lungs: Clear to Auscultation, Normal Respiratory Effort, Decreased Breath Sounds Cardiovascular: Regular Rate, Regular Rhythm - Lab Values: Laboratory Last Values WBC 11.59 K/uL (4.0-11.0) H 04/18/19 05:25 RBC 4.02 M/uL (4.30-5.90) L 04/18/19 05:25 Hgb 11.9 g/dL (12.0-16.0) L 04/18/19 05:25 Hct 37.2 % (36.0-46.0) 04/18/19 05:25 MCV 92.5 fL (80.0-98.0) 04/18/19 05:25 MCH 29.6 pg (27.0-32.0) 04/18/19 05:25 MCHC 32.0 g/dL (31.0-37.0) 04/18/19 05:25 RDW Std Deviation 47.0 fl (28.0-62.0) 04/18/19 05:25 RDW Coeff of Jyotsna 14 % (11.0-15.0) 04/18/19 05:25 Plt Count 167 K/uL (150-400) 04/18/19 05:25 MPV 9.30 fL (7.40-12.00) 04/18/19 05:25 Neut % (Auto) 77.7 % (48.0-80.0) 04/18/19 05:25 Lymph % (Auto) 14.2 % (16.0-40.0) L 04/18/19 05:25 [place] % (Auto) 7.4 % (0.0-15.0) 04/18/19 05:25 Eos % (Auto) 0.6 % (0.0-7.0) 04/18/19 05:25 Baso % (Auto) 0.1 % (0.0-1.5) 04/18/19 05:25 Neut # (Auto) 9.0 K/uL (1.4-5.7) H 04/18/19 05:25 Lymph # (Auto) 1.7 K/uL (0.6-2.4) 04/18/19 05:25 [place] # (Auto) 0.9 K/uL (0.0-0.8) H 04/18/19 05:25 Eos # (Auto) 0.1 K/uL (0.0-0.7) 04/18/19 05:25 Baso # (Auto) 0.0 K/uL (0.0-0.1) 04/18/19 05:25 Nucleated RBC % 0.0 /100WBC 04/18/19 05:25 Nucleated RBCs # 0 K/uL 04/18/19 05:25 ESR 18 mm/hr (0-29) 04/17/19 05:40 INR 1.01 04/16/19 16:37 APTT 24.9 SEC (18.6-31.3) 04/16/19 16:37 Sodium 139 mmol/L (136-145) 04/18/19 05:25 Potassium 3.3 mmol/L (3.5-5.1) L 04/18/19 05:25 Chloride 105 mmol/L (98-107) 04/18/19 05:25 Carbon Dioxide 25.6 mmol/L (21.0-32.0) 04/18/19 05:25 BUN 8 mg/dL (7.0-18.0) 04/18/19 05:25 Creatinine 0.8 mg/dL (0.6-1.0) 04/18/19 05:25 Est Cr Clr Drug Dosing 52.26 mL/min 04/18/19 05:25 Estimated GFR (MDRD) > 60.0 ml/min 04/18/19 05:25 Glucose 155 mg/dL (74-106) H 04/18/19 05:25 POC Glucose 139 mg/dL (60-110) H 04/18/19 05:01 Hemoglobin A1c 6.6 % (4.5-6.2) H 04/17/19 05:40 Calcium 7.7 mg/dL (8.5-10.1) L 04/18/19 05:25 Total Bilirubin 0.7 mg/dL (0.2-1.0) 04/18/19 05:25 AST 15 IU/L (15-37) 04/18/19 05:25 ALT 21 IU/L (14-63) 04/18/19 05:25 Alkaline Phosphatase 84 U/L (46-116) 04/18/19 05:25 C-Reactive Protein 3.40 mg/dL (0.00-0.90) H 04/17/19 05:40 Total Protein 6.6 g/dL (6.4-8.2) 04/18/19 05:25 Albumin 3.0 g/dL (3.4-5.0) L 04/18/19 05:25 Globulin 3.6 g/dL (2.6-4.0) 04/18/19 05:25 Albumin/Globulin Ratio 0.8 (0.9-1.6) L 04/18/19 05:25 Blood Type A POSITIVE 04/16/19 16:37 Antibody Screen NEGATIVE 04/16/19 16:37 - Allergies Allergies/Adverse Reactions: Allergies Allergy/AdvReac Type Severity Reaction Status Date / Time nitrofurantoin Allergy Nausea and Verified 04/16/19 21:14 Vomiting - Anesthesia Plan Free Text/Narrative:: Patient has [facility]DHIN records from [facility] Mar 2018 shows Trop peak of 0.135. The walked in towards the end of my interview and states the "minor [place] was last year not this summer. Pt states she has been ambulating without difficultly or SOA. - Acknowledgements Anesthesia Type Planned: MAC Pt an Appropriate Candidate for the Planned Anesthesia: Yes Alternatives and Risks of Anesthesia Discussed w Pt/Guardian: Yes Pt/Guardian Understands and Agrees with Anesthesia Plan: Yes PreAnesthesia Questionnaire HEENT History: Reports: Impaired Vision Cardiovascular History: Reports: Hypertension, [place] (Mild per the patient, CV apparently told the patient the vessel was so small no stent could be placed.) Respiratory History: Reports: None Gastrointestinal History: Reports: Other (See Below) (Bright Red rectal bleeding ) Genitourinary History: Reports: None PERSONAL SERVICE REPRESENTATIVE History: Reports: None Musculoskeletal History: Reports: None Neurological History: Reports: None Psychiatric History: Reports: None Endocrine/Metabolic History: Reports: Diabetes, Type II (PO RX, HgA1C shows <7.0 ) Hematologic History: Reports: None Immunologic History: Reports: None Oncologic (Cancer) History: Reports: None Dermatologic History: Reports: None - Infectious Disease History Infectious Disease History: Reports: None - Past Surgical History Head Surgeries/Procedures: Reports: None HEENT Surgical History: Reports: Cataract Surgery ([place] after) Cardiovascular Surgical History: Reports: Other (See Below) (History of Heart cath 2018 or 2019, she states NO stents were placed.) Respiratory Surgical History: Reports: None GI Surgical History: Reports: Colonoscopy (x2 in the past), Hernia, Abdominal ( x3, she thinks ventral) Female Surgical History: Reports: Section (x2) Endocrine Surgical History: Reports: None Neurological Surgical History: Reports: None Musculoskeletal Surgical History: Reports: None Oncologic Surgical History: Reports: None Dermatological Surgical History: Reports: None - SUBSTANCE USE Smoking Status *Q: Former Smoker Second Hand Smoke Exposure: Yes Recreational Drug Use History: No - HOME MEDS Home Medications: Home Meds ClonazePAM [KlonoPIN] 0.5 mg PO BEDTIME 04/16/19 [History] Famotidine 20 mg PO BID 04/16/19 [History] Metoprolol Succinate 25 mg PO BID 04/16/19 [History] Pantoprazole [ProTONIX] 40 mg PO QID 04/16/19 [History] Rosuvastatin [Crestor] 10 mg PO DAILY 04/16/19 [History] Trospium [Sanctura] 20 mg PO DAILY 04/16/19 [History] metFORMIN [Glucophage] 500 mg PO BID 04/16/19 [History] traZODone HCl [Trazodone HCl] 100 mg PO BEDTIME 04/16/19 [History] - CURRENT (IN HOUSE) MEDS Current Meds: Current Medications Clonazepam (Klonopin) 0.5 mg PO BEDTIME [facility] Last Admin: 04/17/19 21:32 Dose: 0.5 mg Pantoprazole Sodium 40 mg/ (Sodium Chloride) 10 mls @ 300 mls/hr IV Q24H [facility] Last Admin: 04/17/19 21:45 Dose: 300 mls/hr Sodium Chloride (Normal Saline) 1,000 mls @ 125 mls/hr IV ASDIRECTED [facility] Last Admin: 04/18/19 00:58 Dose: 125 mls/hr Insulin Aspart (Novolog) 0 unit SUBCUT Q6H [facility]; Protocol Last Admin: 04/18/19 05:48 Dose: Not Given Ondansetron HCl (Zofran) 4 mg IVPUSH Q6H PRN PRN Reason: Nausea Last Admin: 04/17/19 18:50 Dose: 4 mg Sodium Chloride (Saline Flush) 10 ml FLUSH ASDIRECTED PRN PRN Reason: Keep Vein Open Sodium Chloride (Saline Flush) 2.5 ml FLUSH ASDIRECTED PRN PRN Reason: Keep Vein Open Trazodone HCl (Trazodone) 100 mg PO BEDTIME [facility] Last Admin: 04/17/19 21:32 Dose: 100 mg Discontinued Medications Bisacodyl (Dulcolax) 20 mg PO ONETIME ONE Stop: 04/17/19 10:30 Last Admin: 04/17/19 11:24 Dose: 20 mg Iopamidol (Isovue Multipack-370 (76%)) 100 ml IVPUSH ONETIME STA Stop: 04/16/19 17:51 Last Admin: 04/16/19 17:50 Dose: 100 ml Polyethylene Glycol (Miralax) 119 gm PO ONETIME ONE Stop: 04/17/19 12:01 Last Admin: 04/17/19 11:26 Dose: 119 gm Polyethylene Glycol (Miralax) 119 gm PO ONETIME ONE Stop: 04/17/19 16:01 Last Admin: 04/17/19 16:10 Dose: 119 gm
[2019-04-18] MEDS ORDERED: Ondansetron 4 MG/2 ML SDV ONE (07:30)
[2019-04-18] MEDS ORDERED: Propofol 200 MG/20 ML SDV ONE (07:30)
[2019-04-18] MEDS ORDERED: fentaNYL 100 MCG/2 ML SDV ONE (07:31)
--- NOTE | 2019-04-18 08:48 | PCM.POSTAN ---
POST ANESTHESIA ASSESSMENT - MENTAL STATUS Mental Status: Alert, Oriented - VITAL SIGNS Vital Signs: Last Vital Signs Temp 98.8 F 04/18/19 07:55 Pulse 88 04/18/19 08:42 Resp 17 04/18/19 08:42 BP 108/47 L 04/18/19 08:42 Pulse Ox 94 L 04/18/19 08:42 - RESPIRATORY Respiratory Status: Respiratory Rate WNL, Airway Patent, O2 Saturation Stable - CARDIOVASCULAR CV Status: Pulse Rate WNL, Blood Pressure Stable - GASTROINTESTINAL GI Status: No Symptoms - POST OP HYDRATION Hydration Status: Adequate & Stable
--- NOTE | 2019-04-18 09:02 | PCM.OPNOTE ---
- General Post-Op/Procedure Note Date of Surgery/Procedure: 04/18/19 Operative Procedure(s): Diagnostic sigmoidoscopy Findings: Grossly inflamed sigmoid colon with plaques along wall. Originally planned colonoscopy but only performed a sigmoidoscopy due to the level of inflammation. Pre Op Diagnosis: BRBPR Post-Op Diagnosis: Colitis Anesthesia Technique: MAC Primary Surgeon: Aubree Gibson Condition: Stable Free Text/Narrative:: Intake & Output 04/17/19 04/18/19 04/18/19 22:59 06:59 14:59 Intake Total 3480 500 Output Total 450 Balance 3030 500
--- NOTE | 2019-04-18 09:08 | PCM.SN ---
- Free Text/Narrative Note: Patient is a 64 year old female who underwent a diagnostic sigmoidoscopy this morning. She was found to have mild-moderate inflammation throughout the sigmoid colon. At 40 cm the patient was noted to have plaques along the wall of the colon. Given the inflammation I elected to not proceed with a full colonoscopy. Stool was sent for C.Diff culture. Biopsies were taken @ 30, 25, 20 cm and in the rectum. Hemorrhoids appeared normal. Recommend placing on contact precautions. C. Diff test ordered stat. Can advance to a regular diet. Will sign out patient to medicine team. If C.Diff negative await biopsy results to determine if this is something autoimmune.
--- NOTE | 2019-04-18 09:55 | OR ---
SURGEON: AUBREE GIBSON MD DATE OF PROCEDURE: 04/16/2019 PREOPERATIVE DIAGNOSIS: Bright red bleeding per rectum. POSTOPERATIVE DIAGNOSIS: Colitis. PROCEDURE PERFORMED: Diagnostic sigmoidoscopy. PRIMARY SURGEON: Aubree Gibson MD. ANESTHESIA: MAC. INSTRUMENT USED: Olympus colonoscope. EXTENT OF EXAM: To 40 cm in the sigmoid colon. PREPARATION: Good. LIMITATIONS: Inflammation throughout the colon. FINDINGS: Gross inflammation throughout the colon with plaques along the sidewalls. Full colonoscopy abandoned given the level of inflammation. COMPLICATIONS: None. INDICATIONS: The patient is a 64-year-old female who presents with bright red bleeding per rectum. She has had ongoing bloody appearing stools in the hospital and the decision was made to proceed with a diagnostic colonoscopy. I explained the procedure; expected perioperative course; and risks including bleeding, infection, or damage to surrounding structures including perforation. She verbalized understanding and wishes to proceed. PROCEDURE IN DETAIL: The patient was brought into the endoscopy suite and placed in the left lateral decubitus position. A time-out was completed verifying the patient's name, age, date of , allergies, and procedure to be performed. Monitored anesthesia care was induced and continuous oxygen was provided via nasal cannula throughout the procedure. After adequate sedation was achieved, a digital rectal exam was performed. This exam was within normal limits. A well-lubricated colonoscope was inserted in the rectum and immediately I noticed that the colon appeared inflamed. I gently advance the scope under direct visualization. At 40 cm from the anus, I noticed plaques and increasing inflammation along the wall of the colon. The decision was made to stop trying to advance the scope given that the tissue inside the colon was friable and inflamed. Photographs were taken of the plaque along the colon wall. Biopsies were taken at 30 cm, 25 cm, 20 cm, and within the rectum and sent to pathology. Stool inside the colon was collected and sent for C. difficile cultures. The scope was brought into the rectum and retroflexed to allow visualization of the anal canal opening. This appeared healthy, pink, and uninvolved with the inflammatory process. Her hemorrhoids appeared normal. The scope was then straightened out and fully withdrawn. The patient tolerated the procedure well and was transferred to the PACU in stable condition. ENDOSCOPIC DIAGNOSIS: Colitis. RECOMMENDATIONS: I visited with the Medicine team regarding my findings. They will follow up on the C. difficile culture results. If these are negative, we will await biopsy results to determine if this is an autoimmune condition or not. ANNABELLE / MILEY /[id number]
--- NOTE | 2019-04-18 11:07 | PCM.PN ---
- General Info Date of Service: 04/18/19 Subjective Update: no acute events overnight. s/p sigmoidoscopy by Dr. Gibson this morning. Patient tested positive for C.diff. - Patient Data Vitals - Most Recent: Last Vital Signs Temp 36.8 C 04/18/19 10:30 Pulse 73 04/18/19 10:30 Resp 14 04/18/19 10:30 BP 98/50 L 04/18/19 10:30 Pulse Ox 93 L 04/18/19 10:37 Weight - Most Recent: 83.4 kg I&O - Last 24 Hours: Intake & Output 04/17/19 04/18/19 04/18/19 22:59 06:59 14:59 Intake Total 3480 500 Output Total 450 Balance 3030 500 Lab Results Last 24 Hours: Laboratory Results - last 24 hr 04/17/19 04/17/19 04/17/19 Range/Units 05:40 05:40 05:40 WBC (4.0-11.0) K/uL RBC (4.30-5.90) M/uL Hgb (12.0-16.0) g/dL Hct (36.0-46.0) % MCV (80.0-98.0) fL MCH (27.0-32.0) pg MCHC (31.0-37.0) g/dL RDW Std Deviation (28.0-62.0) fl RDW Coeff of Jy[place] (11.0-15.0) % Plt Count (150-400) K/uL MPV (7.40-12.00) fL Neut % (Auto) (48.0-80.0) % Lymph % (Auto) (16.0-40.0) % [place] % (Auto) (0.0-15.0) % Eos % (Auto) (0.0-7.0) % Baso % (Auto) (0.0-1.5) % Neut # (Auto) (1.4-5.7) K/uL Lymph # (Auto) (0.6-2.4) K/uL [place] # (Auto) (0.0-0.8) K/uL Eos # (Auto) (0.0-0.7) K/uL Baso # (Auto) (0.0-0.1) K/uL Nucleated RBC % /100WBC Nucleated RBCs # K/uL ESR 18 (0-29) mm/hr Sodium (136-145) mmol/L Potassium (3.5-5.1) mmol/L Chloride (98-107) mmol/L Carbon Dioxide (21.0-32.0) mmol/L BUN (7.0-18.0) mg/dL Creatinine (0.6-1.0) mg/dL Est Cr Clr Drug Dosing mL/min Estimated GFR (MDRD) ml/min Glucose (74-106) mg/dL POC Glucose (60-110) mg/dL Hemoglobin A1c 6.6 H (4.5-6.2) % Calcium (8.5-10.1) mg/dL Total Bilirubin (0.2-1.0) mg/dL AST (15-37) IU/L ALT (14-63) IU/L Alkaline Phosphatase (46-116) U/L C-Reactive Protein 3.40 H (0.00-0.90) mg/dL Total Protein (6.4-8.2) g/dL Albumin (3.4-5.0) g/dL Globulin (2.6-4.0) g/dL Albumin/Globulin Ratio (0.9-1.6) 04/17/19 04/17/19 04/17/19 Range/Units 11:23 17:33 21:34 WBC (4.0-11.0) K/uL RBC (4.30-5.90) M/uL Hgb (12.0-16.0) g/dL Hct (36.0-46.0) % MCV (80.0-98.0) fL MCH (27.0-32.0) pg MCHC (31.0-37.0) g/dL RDW Std Deviation (28.0-62.0) fl RDW Coeff of [place] (11.0-15.0) % Plt Count (150-400) K/uL MPV (7.40-12.00) fL Neut % (Auto) (48.0-80.0) % Lymph % (Auto) (16.0-40.0) % [place] % (Auto) (0.0-15.0) % Eos % (Auto) (0.0-7.0) % Baso % (Auto) (0.0-1.5) % Neut # (Auto) (1.4-5.7) K/uL Lymph # (Auto) (0.6-2.4) K/uL [place] # (Auto) (0.0-0.8) K/uL Eos # (Auto) (0.0-0.7) K/uL Baso # (Auto) (0.0-0.1) K/uL Nucleated RBC % /100WBC Nucleated RBCs # K/uL ESR (0-29) mm/hr Sodium (136-145) mmol/L Potassium (3.5-5.1) mmol/L Chloride (98-107) mmol/L Carbon Dioxide (21.0-32.0) mmol/L BUN (7.0-18.0) mg/dL Creatinine (0.6-1.0) mg/dL Est Cr Clr Drug Dosing mL/min Estimated GFR (MDRD) ml/min Glucose (74-106) mg/dL POC Glucose 121 H 161 H 168 H (60-110) mg/dL Hemoglobin A1c (4.5-6.2) % Calcium (8.5-10.1) mg/dL Total Bilirubin (0.2-1.0) mg/dL AST (15-37) IU/L ALT (14-63) IU/L Alkaline Phosphatase (46-116) U/L C-Reactive Protein (0.00-0.90) mg/dL Total Protein (6.4-8.2) g/dL Albumin (3.4-5.0) g/dL Globulin (2.6-4.0) g/dL Albumin/Globulin Ratio (0.9-1.6) 04/18/19 04/18/19 04/18/19 Range/Units 00:25 05:01 05:25 WBC 11.59 H (4.0-11.0) K/uL RBC 4.02 L (4.30-5.90) M/uL Hgb 11.9 L (12.0-16.0) g/dL Hct 37.2 (36.0-46.0) % MCV 92.5 (80.0-98.0) fL MCH 29.6 (27.0-32.0) pg MCHC 32.0 (31.0-37.0) g/dL RDW Std Deviation 47.0 (28.0-62.0) fl RDW Coeff of [place] 14 (11.0-15.0) % Plt Count 167 (150-400) K/uL MPV 9.30 (7.40-12.00) fL Neut % (Auto) 77.7 (48.0-80.0) % Lymph % (Auto) 14.2 L (16.0-40.0) % [place] % (Auto) 7.4 (0.0-15.0) % Eos % (Auto) 0.6 (0.0-7.0) % Baso % (Auto) 0.1 (0.0-1.5) % Neut # (Auto) 9.0 H (1.4-5.7) K/uL Lymph # (Auto) 1.7 (0.6-2.4) K/uL [place] # (Auto) 0.9 H (0.0-0.8) K/uL Eos # (Auto) 0.1 (0.0-0.7) K/uL Baso # (Auto) 0.0 (0.0-0.1) K/uL Nucleated RBC % 0.0 /100WBC Nucleated RBCs # 0 K/uL ESR (0-29) mm/hr Sodium (136-145) mmol/L Potassium (3.5-5.1) mmol/L Chloride (98-107) mmol/L Carbon Dioxide (21.0-32.0) mmol/L BUN (7.0-18.0) mg/dL Creatinine (0.6-1.0) mg/dL Est Cr Clr Drug Dosing mL/min Estimated GFR (MDRD) ml/min Glucose (74-106) mg/dL POC Glucose 157 H 139 H (60-110) mg/dL Hemoglobin A1c (4.5-6.2) % Calcium (8.5-10.1) mg/dL Total Bilirubin (0.2-1.0) mg/dL AST (15-37) IU/L ALT (14-63) IU/L Alkaline Phosphatase (46-116) U/L C-Reactive Protein (0.00-0.90) mg/dL Total Protein (6.4-8.2) g/dL Albumin (3.4-5.0) g/dL Globulin (2.6-4.0) g/dL Albumin/Globulin Ratio (0.9-1.6) 04/18/19 Range/Units 05:25 WBC (4.0-11.0) K/uL RBC (4.30-5.90) M/uL Hgb (12.0-16.0) g/dL Hct (36.0-46.0) % MCV (80.0-98.0) fL MCH (27.0-32.0) pg MCHC (31.0-37.0) g/dL RDW Std Deviation (28.0-62.0) fl RDW Coeff of [place] (11.0-15.0) % Plt Count (150-400) K/uL MPV (7.40-12.00) fL Neut % (Auto) (48.0-80.0) % Lymph % (Auto) (16.0-40.0) % [place] % (Auto) (0.0-15.0) % Eos % (Auto) (0.0-7.0) % Baso % (Auto) (0.0-1.5) % Neut # (Auto) (1.4-5.7) K/uL Lymph # (Auto) (0.6-2.4) K/uL [place] # (Auto) (0.0-0.8) K/uL Eos # (Auto) (0.0-0.7) K/uL Baso # (Auto) (0.0-0.1) K/uL Nucleated RBC % /100WBC Nucleated RBCs # K/uL ESR (0-29) mm/hr Sodium 139 (136-145) mmol/L Potassium 3.3 L (3.5-5.1) mmol/L Chloride 105 (98-107) mmol/L Carbon Dioxide 25.6 (21.0-32.0) mmol/L BUN 8 (7.0-18.0) mg/dL Creatinine 0.8 (0.6-1.0) mg/dL Est Cr Clr Drug Dosing 52.26 mL/min Estimated GFR (MDRD) > 60.0 ml/min Glucose 155 H (74-106) mg/dL POC Glucose (60-110) mg/dL Hemoglobin A1c (4.5-6.2) % Calcium 7.7 L (8.5-10.1) mg/dL Total Bilirubin 0.7 (0.2-1.0) mg/dL AST 15 (15-37) IU/L ALT 21 (14-63) IU/L Alkaline Phosphatase 84 (46-116) U/L C-Reactive Protein (0.00-0.90) mg/dL Total Protein 6.6 (6.4-8.2) g/dL Albumin 3.0 L (3.4-5.0) g/dL Globulin 3.6 (2.6-4.0) g/dL Albumin/Globulin Ratio 0.8 L (0.9-1.6) Rickey Results Last 24 Hours: Microbiology 04/18/19 08:24 C. difficile Antigen & Toxins A,B - Final Stool / Feces 04/17/19 01:25 Stool Culture - Final Stool / Feces NO SALMONELLA, SHIGELLA,OR E.COLI O157 ISOLATED Campylobacter Antigen Assay - Final NEGATIVE CAMPYLOBACTER AG REFERENCE RANGE: NEGATIVE Shiga Toxin I - Final NEGATIVE FOR SHIGA TOXIN 1 REFERENCE RANGE: NEGATIVE Shiga Toxin II - Final NEGATIVE FOR SHIGA TOXIN 2 REFERENCE RANGE: NEGATIVE Med Orders - Current: Current Medications Clonazepam (Klonopin) 0.5 mg PO BEDTIME [facility] Last Admin: 04/17/19 21:32 Dose: 0.5 mg Pantoprazole Sodium 40 mg/ (Sodium Chloride) 10 mls @ 300 mls/hr IV Q24H [facility] Last Admin: 04/17/19 21:45 Dose: 300 mls/hr Sodium Chloride (Normal Saline) 1,000 mls @ 125 mls/hr IV ASDIRECTED [facility] Last Admin: 04/18/19 09:18 Dose: 125 mls/hr Insulin Aspart (Novolog) 0 unit SUBCUT Q6H [facility]; Protocol Last Admin: 04/18/19 05:48 Dose: Not Given Ondansetron HCl (Zofran) 4 mg IVPUSH Q6H PRN PRN Reason: Nausea Last Admin: 04/17/19 18:50 Dose: 4 mg Sodium Chloride (Saline Flush) 10 ml FLUSH ASDIRECTED PRN PRN Reason: Keep Vein Open Sodium Chloride (Saline Flush) 2.5 ml FLUSH ASDIRECTED PRN PRN Reason: Keep Vein Open Trazodone HCl (Trazodone) 100 mg PO BEDTIME [facility] Last Admin: 04/17/19 21:32 Dose: 100 mg Vancomycin HCl (Vancomycin) 125 mg PO QID [facility] Discontinued Medications Bisacodyl (Dulcolax) 20 mg PO ONETIME ONE Stop: 04/17/19 10:30 Last Admin: 04/17/19 11:24 Dose: 20 mg Fentanyl (Sublimaze) Confirm Administered Dose 100 mcg .ROUTE .STK-MED ONE Stop: 04/18/19 07:32 Iopamidol (Isovue Multipack-370 (76%)) 100 ml IVPUSH ONETIME STA Stop: 04/16/19 17:51 Last Admin: 04/16/19 17:50 Dose: 100 ml Ondansetron HCl (Zofran) Confirm Administered Dose 4 mg .ROUTE .STK-MED ONE Stop: 04/18/19 07:31 Polyethylene Glycol (Miralax) 119 gm PO ONETIME ONE Stop: 04/17/19 12:01 Last Admin: 04/17/19 11:26 Dose: 119 gm Polyethylene Glycol (Miralax) 119 gm PO ONETIME ONE Stop: 04/17/19 16:01 Last Admin: 04/17/19 16:10 Dose: 119 gm Propofol (Diprivan 20 Ml) Confirm Administered Dose 400 mg .ROUTE .STK-MED ONE Stop: 04/18/19 07:31 - Exam General: Alert, Oriented, Cooperative, No Acute Distress Lungs: Clear to Auscultation, Normal Respiratory Effort. No: Crackles, Wheezing Cardiovascular: Regular Rate, Regular Rhythm GI/Abdominal Exam: Normal Bowel Sounds, Soft, Non-Tender, No Distention Extremities: Normal Inspection, No Pedal Edema Skin: Warm, Dry - Problem List Review Problem List Initiated/Reviewed/Updated: Yes - My Orders Last 24 Hours: My Active Orders 04/17/19 18:35 Ondansetron [Zofran] 4 mg IVPUSH Q6H PRN 04/18/19 12:00 Vancomycin 125 mg PO QID 04/19/19 05:11 CBC WITH AUTO DIFF [HEME] AM COMPREHENSIVE METABOLIC PN,CMP [CHEM] AM - Plan Plan:: A: 1. C.difficile colitis 2. Hypokalemia 3. Hypomagnesemia 4. diabetes type 2 P: 1. Started vancomycin 125 mg PO QID for C.diff. Will need to take for total of 10 days. Replace electrolytes. Will plan to DC tomorrow and follow-up with Dr. Gibson as outpatient.
--- NOTE | 2019-04-18 11:20 | PCM48HPAN ---
Post Anesthesia Note - EVALUATION WITHIN 48HRS OF ANESTHETIC Vital Signs in Normal Range: Yes Patient Participated in Evaluation: Yes Respiratory Function Stable: Yes Airway Patent: Yes Cardiovascular Function Stable: Yes Hydration Status Stable: Yes Pain Control Satisfactory: Yes Nausea and Vomiting Control Satisfactory: Yes Mental Status Recovered: Yes Vital Signs: Last Vital Signs Temp 36.8 C 04/18/19 10:30 Pulse 73 04/18/19 10:30 Resp 14 04/18/19 10:30 BP 98/50 L 04/18/19 10:30 Pulse Ox 93 L 04/18/19 10:37 - COMMENTS/OBSERVATIONS Free Text/Narrative:: Doing well. No problems noted post.
[2019-04-18] MEDS: Vancomycin 125 MG Cap PO SCH ×3 (12:27→23:35)
[2019-04-18] MEDS ORDERED: Potassium Chloride 20 MEQ Tab.ER PO ONE (13:54)
[2019-04-18] MEDS ORDERED: Enoxaparin 40 MG/0.4 ML Syringe SUBCUT SCH (14:00)
[2019-04-18] MEDS ORDERED: Magnesium Sulfate/Water 2 GM in Premix Bag 1 BAG IV ONE (15:27)
[2019-04-18] MEDS: Sucralfate 1 GM Tab PO SCH ×2 (17:35→20:53)
[2019-04-18] MEDS: ClonazePAM 0.5 MG Tab PO SCH (20:54)
[2019-04-18] MEDS: traZODone 50 MG Tab PO SCH (20:54)
[2019-04-18] MEDS: Famotidine 20 MG Tab PO SCH (20:54)
[2019-04-19] MEDS: Sodium Chloride 0.9% 1,000 ML IV SCH (03:40)
[2019-04-19] MEDS: Insulin Aspart 100 Units/ML 3 ML Pen SUBCUT SCH ×2 (04:27→10:26)
[2019-04-19] MEDS: Vancomycin 125 MG Cap PO SCH ×2 (06:44→11:46)
[2019-04-19] MEDS: Sucralfate 1 GM Tab PO SCH ×2 (06:44→11:38)
[2019-04-19 06:54] LABS: BLOOD UREA NITROGEN,BUN 7 mg/dL (7.0-18.0); CARBON DIOXIDE,CO2 25.6 mmol/L (21.0-32.0); CHLORIDE,CL 106 mmol/L (98-107); GLUCOSE RANDOM 157 mg/dL (74-106); SODIUM,NA 138 mmol/L (136-145)
[2019-04-19] MEDS ORDERED: Magnesium Sulfate/Water 2 GM in Premix Bag 1 BAG IV ONE (07:34)
[2019-04-19] MEDS ORDERED: Metoprolol Succinate 25 MG Tab.ER PO SCH (09:00)
[2019-04-19] MEDS: Famotidine 20 MG Tab PO SCH (10:11)
--- NOTE | 2019-04-19 12:03 | CR ---
EXAM DATE: 04/16/19 PATIENT'S AGE: 64 Left knee: AP and lateral views left knee were obtained. Comparison: No prior knee exam. Knee prosthesis is seen. Components are aligned. Underlying bony structures appear intact. Impression: 1. Knee prosthesis. 2. Nothing acute is seen on left knee study. Diagnostic code #2 Report Signed by Proxy. [facility]
--- NOTE | 2019-04-19 13:27 | PCM.DCSUM1 ---
<Tyler Irvin - Last Filed: 04/19/19 13:35> Discharge Summary - Hospital Course Free Text/Narrative:: 64 y/o female with history of diabetes type 2 presenting to the ER complaining of bright red blood per rectum and some abdominal pain. Patient was started on Protonix 40 IV q14H for suspected lower GI bleed. Her blood pressure and serial H/H remained stable at Hg 12. Dr. Gibson, general surgery was consulted who performed an sigmoidoscopy after finding plaque formations suspicious for C. difficile. Sample was sent to lab and came back positive for C. diff antigen but negative for C. diff toxin. She was started on Vancomycin 125 mg PO QID for 10 days. At time of discharge, she denied any nausea, vomiting. Mild abdominal pain. No blood in stool and stool frequency was down. She was advised to follow- up with her PCP for complete colonoscopy. - Discharge Data Discharge Date: 04/19/19 Discharge Disposition: Home, Self-Care 01 Condition: Good - Referral to Home Health Primary Care Physician: PCP Unknown - Patient Summary/Data Operative Procedure(s) Performed: Diagnostic sigmoidoscopy Consults: Consultations 04/16/19 22:23 Consult to Physician [CONS] Routine - Patient Instructions Diet: Diabetic Diet Activity: As Tolerated Notify Provider of: Fever, Increased Pain, Nausea and/or Vomiting - Discharge Plan *PRESCRIPTION DRUG MONITORING PROGRAM REVIEWED*: Not Applicable *COPY OF PRESCRIPTION DRUG MONITORING REPORT IN PATIENT PAT: Not Applicable Prescriptions/Med Rec: Vancomycin 125 mg PO QID 10 Days #40 cap Home Medications: Home Meds ClonazePAM [KlonoPIN] 0.5 mg PO BEDTIME 04/16/19 [History] Famotidine 20 mg PO BID 04/16/19 [History] Metoprolol Succinate 12.5 mg PO DAILY 04/16/19 [History] Pantoprazole [ProTONIX] 40 mg PO DAILY 04/16/19 [History] Rosuvastatin [Crestor] 10 mg PO DAILY 04/16/19 [History] Trospium [Sanctura] 20 mg PO DAILY 04/16/19 [History] metFORMIN [Glucophage] 500 mg PO BID 04/16/19 [History] traZODone HCl [Trazodone HCl] 100 mg PO BEDTIME 04/16/19 [History] Sucralfate 1 gm PO QIDACANDBED 04/18/19 [History] Vancomycin 125 mg PO QID 10 Days #40 cap 04/19/19 [Rx] Patient Handouts: Clostridium Difficile Infection, [id number], Vancomycin capsules Referrals: [facility] [Outside] Angelica Prasad MD [Ordering Only Provider] - (follow-up with PCP in 1 week.) - Discharge Summary/Plan Comment DC Time >30 min.: No - Patient Data Vitals - Most Recent: Last Vital Signs Temp 37.2 C 04/19/19 12:00 Pulse 80 04/19/19 12:00 Resp 16 04/19/19 12:00 BP 96/51 L 04/19/19 12:00 Pulse Ox 94 L 04/19/19 12:00 Weight - Most Recent: 83.4 kg I&O - Last 24 hours: Intake & Output 04/18/19 04/19/19 04/19/19 22:59 06:59 14:59 Intake Total 830 500 Output Total 500 800 Balance 330 -300 Lab Results - Last 24 hrs: Laboratory Results - last 24 hr 04/18/19 04/18/19 04/18/19 Range/Units 08:28 15:49 22:04 WBC (4.0-11.0) K/uL RBC (4.30-5.90) M/uL Hgb (12.0-16.0) g/dL Hct (36.0-46.0) % MCV (80.0-98.0) fL MCH (27.0-32.0) pg MCHC (31.0-37.0) g/dL RDW Std Deviation (28.0-62.0) fl RDW Coeff of Jyotsna (11.0-15.0) % Plt Count (150-400) K/uL MPV (7.40-12.00) fL Neut % (Auto) (48.0-80.0) % Lymph % (Auto) (16.0-40.0) % Cassia % (Auto) (0.0-15.0) % Eos % (Auto) (0.0-7.0) % Baso % (Auto) (0.0-1.5) % Neut # (Auto) (1.4-5.7) K/uL Lymph # (Auto) (0.6-2.4) K/uL Cassia # (Auto) (0.0-0.8) K/uL Eos # (Auto) (0.0-0.7) K/uL Baso # (Auto) (0.0-0.1) K/uL Nucleated RBC % /100WBC Nucleated RBCs # K/uL Sodium (136-145) mmol/L Potassium (3.5-5.1) mmol/L Chloride (98-107) mmol/L Carbon Dioxide (21.0-32.0) mmol/L BUN (7.0-18.0) mg/dL Creatinine (0.6-1.0) mg/dL Est Cr Clr Drug Dosing mL/min Estimated GFR (MDRD) ml/min Glucose (74-106) mg/dL POC Glucose 91 127 H (60-110) mg/dL Calcium (8.5-10.1) mg/dL Magnesium 1.2 L (1.8-2.4) mg/dL Total Bilirubin (0.2-1.0) mg/dL AST (15-37) IU/L ALT (14-63) IU/L Alkaline Phosphatase (46-116) U/L Total Protein (6.4-8.2) g/dL Albumin (3.4-5.0) g/dL Globulin (2.6-4.0) g/dL Albumin/Globulin Ratio (0.9-1.6) 04/19/19 04/19/19 04/19/19 Range/Units 04:11 06:15 06:15 WBC 7.99 (4.0-11.0) K/uL RBC 3.76 L (4.30-5.90) M/uL Hgb 11.0 L (12.0-16.0) g/dL Hct 34.9 L (36.0-46.0) % MCV 92.8 (80.0-98.0) fL MCH 29.3 (27.0-32.0) pg MCHC 31.5 (31.0-37.0) g/dL RDW Std Deviation 47.4 (28.0-62.0) fl RDW Coeff of Jyotsna 14 (11.0-15.0) % Plt Count 157 (150-400) K/uL MPV 9.00 (7.40-12.00) fL Neut % (Auto) 79.5 (48.0-80.0) % Lymph % (Auto) 12.1 L (16.0-40.0) % Cassia % (Auto) 6.5 (0.0-15.0) % Eos % (Auto) 1.8 (0.0-7.0) % Baso % (Auto) 0.1 (0.0-1.5) % Neut # (Auto) 6.4 H (1.4-5.7) K/uL Lymph # (Auto) 1.0 (0.6-2.4) K/uL Cassia # (Auto) 0.5 (0.0-0.8) K/uL Eos # (Auto) 0.1 (0.0-0.7) K/uL Baso # (Auto) 0.0 (0.0-0.1) K/uL Nucleated RBC % 0.0 /100WBC Nucleated RBCs # 0 K/uL Sodium 138 (136-145) mmol/L Potassium 4.0 (3.5-5.1) mmol/L Chloride 106 (98-107) mmol/L Carbon Dioxide 25.6 (21.0-32.0) mmol/L BUN 7 (7.0-18.0) mg/dL Creatinine 0.8 (0.6-1.0) mg/dL Est Cr Clr Drug Dosing 52.26 mL/min Estimated GFR (MDRD) > 60.0 ml/min Glucose 157 H (74-106) mg/dL POC Glucose 147 H (60-110) mg/dL Calcium 7.9 L (8.5-10.1) mg/dL Magnesium 1.5 L (1.8-2.4) mg/dL Total Bilirubin 0.6 (0.2-1.0) mg/dL AST 16 (15-37) IU/L ALT 22 (14-63) IU/L Alkaline Phosphatase 84 (46-116) U/L Total Protein 6.4 (6.4-8.2) g/dL Albumin 2.8 L (3.4-5.0) g/dL Globulin 3.6 (2.6-4.0) g/dL Albumin/Globulin Ratio 0.8 L (0.9-1.6) 11/12/19 Range/Units 10:25 WBC (4.0-11.0) K/uL RBC (4.30-5.90) M/uL Hgb (12.0-16.0) g/dL Hct (36.0-46.0) % MCV (80.0-98.0) fL MCH (27.0-32.0) pg MCHC (31.0-37.0) g/dL RDW Std Deviation (28.0-62.0) fl RDW Coeff of Jyotsna (11.0-15.0) % Plt Count (150-400) K/uL MPV (7.40-12.00) fL Neut % (Auto) (48.0-80.0) % Lymph % (Auto) (16.0-40.0) % Cassia % (Auto) (0.0-15.0) % Eos % (Auto) (0.0-7.0) % Baso % (Auto) (0.0-1.5) % Neut # (Auto) (1.4-5.7) K/uL Lymph # (Auto) (0.6-2.4) K/uL Cassia # (Auto) (0.0-0.8) K/uL Eos # (Auto) (0.0-0.7) K/uL Baso # (Auto) (0.0-0.1) K/uL Nucleated RBC % /100WBC Nucleated RBCs # K/uL Sodium (136-145) mmol/L Potassium (3.5-5.1) mmol/L Chloride (98-107) mmol/L Carbon Dioxide (21.0-32.0) mmol/L BUN (7.0-18.0) mg/dL Creatinine (0.6-1.0) mg/dL Est Cr Clr Drug Dosing mL/min Estimated GFR (MDRD) ml/min Glucose (74-106) mg/dL POC Glucose 122 H (60-110) mg/dL Calcium (8.5-10.1) mg/dL Magnesium (1.8-2.4) mg/dL Total Bilirubin (0.2-1.0) mg/dL AST (15-37) IU/L ALT (14-63) IU/L Alkaline Phosphatase (46-116) U/L Total Protein (6.4-8.2) g/dL Albumin (3.4-5.0) g/dL Globulin (2.6-4.0) g/dL Albumin/Globulin Ratio (0.9-1.6) CONSTANTINO Results - Last 24 hrs: Microbiology 04/18/19 08:24 Clostridioides difficile (PCR) - Final Stool / Feces 04/18/19 08:24 C. difficile Antigen & Toxins A,B - Final Stool / Feces 04/17/19 01:25 Stool Culture - Final Stool / Feces NO SALMONELLA, SHIGELLA,OR E.COLI O157 ISOLATED Campylobacter Antigen Assay - Final NEGATIVE CAMPYLOBACTER AG REFERENCE RANGE: NEGATIVE Shiga Toxin I - Final NEGATIVE FOR SHIGA TOXIN 1 REFERENCE RANGE: NEGATIVE Shiga Toxin II - Final NEGATIVE FOR SHIGA TOXIN 2 REFERENCE RANGE: NEGATIVE Med Orders - Current: Current Medications Clonazepam (Klonopin) 0.5 mg PO BEDTIME [facility] Last Admin: 04/18/19 20:54 Dose: 0.5 mg Famotidine (Pepcid) 20 mg PO BID [facility] Last Admin: 04/19/19 10:11 Dose: 20 mg Sodium Chloride (Normal Saline) 1,000 mls @ 125 mls/hr IV ASDIRECTED [facility] Last Admin: 04/19/19 03:40 Dose: 125 mls/hr Insulin Aspart (Novolog) 0 unit SUBCUT Q6H [facility]; Protocol Last Admin: 04/19/19 10:26 Dose: Not Given Metoprolol Succinate (Toprol Xl) 12.5 mg PO DAILY [facility] Last Admin: 04/19/19 10:14 Dose: 12.5 mg Ondansetron HCl (Zofran) 4 mg IVPUSH Q6H PRN PRN Reason: Nausea Last Admin: 04/17/19 18:50 Dose: 4 mg Sodium Chloride (Saline Flush) 10 ml FLUSH ASDIRECTED PRN PRN Reason: Keep Vein Open Sodium Chloride (Saline Flush) 2.5 ml FLUSH ASDIRECTED PRN PRN Reason: Keep Vein Open Sucralfate (Carafate) 1 gm PO QIDACANDBED [facility] Last Admin: 04/19/19 11:38 Dose: 1 gm Trazodone HCl (Trazodone) 100 mg PO BEDTIME [facility] Last Admin: 04/18/19 20:54 Dose: 100 mg Vancomycin HCl (Vancomycin) 125 mg PO QID [facility] Last Admin: 04/19/19 11:46 Dose: 125 mg Discontinued Medications Bisacodyl (Dulcolax) 20 mg PO ONETIME ONE Stop: 04/17/19 10:30 Last Admin: 04/17/19 11:24 Dose: 20 mg Enoxaparin Sodium (Lovenox) 40 mg SUBCUT Q24H [facility] Last Admin: 04/18/19 15:23 Dose: 40 mg Fentanyl (Sublimaze) Confirm Administered Dose 100 mcg .ROUTE .STK-MED ONE Stop: 04/18/19 07:32 Pantoprazole Sodium 40 mg/ (Sodium Chloride) 10 mls @ 300 mls/hr IV Q24H [facility] Last Admin: 04/17/19 21:45 Dose: 300 mls/hr Magnesium Sulfate 2 gm/ Premix 50 mls @ 25 mls/hr IV ONETIME ONE Stop: 04/18/19 17:26 Last Admin: 04/18/19 16:20 Dose: 25 mls/hr Magnesium Sulfate 2 gm/ Premix 50 mls @ 25 mls/hr IV ONETIME ONE Stop: 04/19/19 09:33 Last Admin: 04/19/19 08:06 Dose: 25 mls/hr Iopamidol (Isovue Multipack-370 (76%)) 100 ml IVPUSH ONETIME STA Stop: 04/16/19 17:51 Last Admin: 04/16/19 17:50 Dose: 100 ml Ondansetron HCl (Zofran) Confirm Administered Dose 4 mg .ROUTE .STK-MED ONE Stop: 04/18/19 07:31 Polyethylene Glycol (Miralax) 119 gm PO ONETIME ONE Stop: 04/17/19 12:01 Last Admin: 04/17/19 11:26 Dose: 119 gm Polyethylene Glycol (Miralax) 119 gm PO ONETIME ONE Stop: 04/17/19 16:01 Last Admin: 04/17/19 16:10 Dose: 119 gm Potassium Chloride (Klor-Con M20) 40 meq PO ONETIME ONE Stop: 04/18/19 13:55 Last Admin: 04/18/19 15:24 Dose: 40 meq Propofol (Diprivan 20 Ml) Confirm Administered Dose 400 mg .ROUTE .STK-MED ONE Stop: 04/18/19 07:31 <Edmund Ramirez - Last Filed: 04/20/19 14:07> Discharge Summary - Hospital Course HPI Initial Comments: I have seen and evaluated the patient and agree with the residents note unless specified in my note. - Referral to Home Health Primary Care Physician: PCP Unknown - Patient Summary/Data Consults: Consultations 04/16/19 22:23 Consult to Physician [CONS] Routine - Patient Data Vitals - Most Recent: Last Vital Signs Temp 37.2 C 04/19/19 12:00 Pulse 80 04/19/19 12:00 Resp 16 04/19/19 12:00 BP 96/51 L 04/19/19 12:00 Pulse Ox 94 L 04/19/19 12:00 [facility] Results - Last 24 hrs: Microbiology 04/18/19 08:24 Clostridioides difficile (PCR) - Final Stool / Feces Med Orders - Current: Current Medications Discontinued Medications Bisacodyl (Dulcolax) 20 mg PO ONETIME ONE Stop: 04/17/19 10:30 Last Admin: 04/17/19 11:24 Dose: 20 mg Clonazepam (Klonopin) 0.5 mg PO BEDTIME [facility] Last Admin: 04/18/19 20:54 Dose: 0.5 mg Enoxaparin Sodium (Lovenox) 40 mg SUBCUT Q24H [facility] Last Admin: 04/18/19 15:23 Dose: 40 mg Famotidine (Pepcid) 20 mg PO BID [facility] Last Admin: 04/19/19 10:11 Dose: 20 mg Fentanyl (Sublimaze) Confirm Administered Dose 100 mcg .ROUTE .STK-MED ONE Stop: 04/18/19 07:32 Pantoprazole Sodium 40 mg/ (Sodium Chloride) 10 mls @ 300 mls/hr IV Q24H [facility] Last Admin: 04/17/19 21:45 Dose: 300 mls/hr Sodium Chloride (Normal Saline) 1,000 mls @ 125 mls/hr IV ASDIRECTED [facility] Last Admin: 04/19/19 03:40 Dose: 125 mls/hr Magnesium Sulfate 2 gm/ Premix 50 mls @ 25 mls/hr IV ONETIME ONE Stop: 04/18/19 17:26 Last Admin: 04/18/19 16:20 Dose: 25 mls/hr Magnesium Sulfate 2 gm/ Premix 50 mls @ 25 mls/hr IV ONETIME ONE Stop: 04/19/19 09:33 Last Admin: 04/19/19 08:06 Dose: 25 mls/hr Insulin Aspart (Novolog) 0 unit SUBCUT Q6H [facility]; Protocol Last Admin: 04/19/19 10:26 Dose: Not Given Iopamidol (Isovue Multipack-370 (76%)) 100 ml IVPUSH ONETIME STA Stop: 04/16/19 17:51 Last Admin: 04/16/19 17:50 Dose: 100 ml Metoprolol Succinate (Toprol Xl) 12.5 mg PO DAILY [facility] Last Admin: 04/19/19 10:14 Dose: 12.5 mg Ondansetron HCl (Zofran) 4 mg IVPUSH Q6H PRN PRN Reason: Nausea Last Admin: 04/17/19 18:50 Dose: 4 mg Ondansetron HCl (Zofran) Confirm Administered Dose 4 mg .ROUTE .STK-MED ONE Stop: 04/18/19 07:31 Polyethylene Glycol (Miralax) 119 gm PO ONETIME ONE Stop: 04/17/19 12:01 Last Admin: 04/17/19 11:26 Dose: 119 gm Polyethylene Glycol (Miralax) 119 gm PO ONETIME ONE Stop: 04/17/19 16:01 Last Admin: 04/17/19 16:10 Dose: 119 gm Potassium Chloride (Klor-Con M20) 40 meq PO ONETIME ONE Stop: 04/18/19 13:55 Last Admin: 04/18/19 15:24 Dose: 40 meq Propofol (Diprivan 20 Ml) Confirm Administered Dose 400 mg .ROUTE .STK-MED ONE Stop: 04/18/19 07:31 Sodium Chloride (Saline Flush) 10 ml FLUSH ASDIRECTED PRN PRN Reason: Keep Vein Open Sodium Chloride (Saline Flush) 2.5 ml FLUSH ASDIRECTED PRN PRN Reason: Keep Vein Open Sucralfate (Carafate) 1 gm PO QIDACANDBED [facility] Last Admin: 04/19/19 11:38 Dose: 1 gm Trazodone HCl (Trazodone) 100 mg PO BEDTIME [facility] Last Admin: 04/18/19 20:54 Dose: 100 mg Vancomycin HCl (Vancomycin) 125 mg PO QID [facility] Last Admin: 04/19/19 11:46 Dose: 125 mg
== END 2019-04-19 14:15 | disposition home or self-care (01) ==
LOC: EDBD 16:14 → MW.ED 16:14 → MW.MS 19:23
PROVIDERS: ADMIT Internal Medicine; ATTEND Internal Medicine
DX: K52.9 Noninfective gastroenteritis and colitis, unspecified (principal); K64.9 Unspecified hemorrhoids; E11.9 Type 2 diabetes mellitus without complications; Z88.8 Allergy status to other drugs, medicaments and biological substances; Z87.891 Personal history of nicotine dependence; R94.31 Abnormal electrocardiogram [ECG] [EKG]
CPT/HCPCS: 36415; 45331; 73560; 74177; 80048; 80053; 82272; 82962; 83036; 83630; 83735; 85025; 85610; 85652; 85730; 86140; 86850; 86900; 86901; 87046; 87324; 87493; 87899; 88305; 93005; 96361; 96365; 96366; 96372; 96375; 96376; 99285; A9270; C9113; G0378; J1650; J1815; J2405; J2704; J3010; J3475; J7040; J7050; Q9967; 99283; J7030

== ENCOUNTER 2023-10-01 09:50 | Day surgery (SDC) | payer MEDICARE, OTHER ==
[~2023-10-01 09:50] MED LIST: Sodium Chloride 0.9% 10 ML Syringe FLUSH PRN; Sodium Chloride 0.9% 2.5 ML Syringe FLUSH PRN; Sodium Chloride 0.9% 20 ML SDV IV PRN
[2023-10-01] MEDS: Lactated Ringers 1,000 ML IV SCH (10:25)
[2023-10-01] MEDS ORDERED: propofoL 50 ML ONE (10:44)
== END 2023-10-01 12:12 | disposition home or self-care (01) ==
LOC: MW.SDS 09:50
PROVIDERS: ATTEND Surgery
DX: Z12.11 Encounter for screening for malignant neoplasm of colon (principal); K57.30 Diverticulosis of large intestine without perforation or abscess without bleeding; E11.9 Type 2 diabetes mellitus without complications; I25.10 Atherosclerotic heart disease of native coronary artery without angina pectoris; I25.2 Old myocardial infarction; Z87.891 Personal history of nicotine dependence; Z80.0 Family history of malignant neoplasm of digestive organs; Z79.84 Long term (current) use of oral hypoglycemic drugs; Z79.899 Other long term (current) drug therapy; Z88.8 Allergy status to other drugs, medicaments and biological substances
CPT/HCPCS: G0105; J2704; J7120; 00812

== ENCOUNTER 2024-04-12 19:01 | Inpatient (IN) | payer MEDICARE, OTHER ==
[2024-04-12 19:44] LABS: HEMATOCRIT 36.3 % (37.0-47.0); HEMOGLOBIN 12.1 g/dL (12.0-16.0); MEAN CORPUSCULAR HEMOGLOBIN 30.3 pg (28.0-32.0); MEAN CORPUSCULAR HGB CONC 33.3 g/dL (32.0-36.0); MEAN PLATELET VOLUME 8.9 fL (9.4-12.3); PLATELET COUNT,PLT 177 K/uL (150-400); RED BLOOD CELL COUNT 3.99 M/uL (4.10-5.30); WHITE BLOOD CELL COUNT,WBC 3.98 K/uL (3.9-11.3)
[2024-04-12 20:10] LABS: A/G RATIO 0.8 (0.9-1.6); ALBUMIN 3.1 g/dL (3.4-5.0); CALCIUM 8.9 mg/dL (8.5-10.1); CARBON DIOXIDE,CO2 24.4 mmol/L (21.0-32.0); CREATININE 1.3 mg/dL (0.6-1.0); EST CRCL DRUG DOSING (CG) 29.95 mL/min; POTASSIUM,K 3.6 mmol/L (3.5-5.1); PROTEIN TOTAL,TP 7.2 g/dL (6.4-8.2)
[2024-04-12 20:22] LABS: BAND ABSOLUTE MAN 0.16; BAND PERCENT MAN 4 %; SEG NEUTROPHILS ABSOLUTE MAN 2.59 K/uL (1.80-7.70); SEG NEUTROPHILS PERCENT MAN 65 % (41-71)
[2024-04-12] MEDS: Ondansetron 4 MG/2 ML SDV ONE (20:22)
[2024-04-12 20:23] LABS: BASOPHILS PERCENT MAN 0 % (0-1); EOSINOPHILS ABSOLUTE MAN 0.04 K/uL (0.00-0.45); EOSINOPHILS PERCENT MAN 1 % (0-6); LYMPHOCYTES ABSOLUTE MAN 0.64 K/uL (1.00-4.80); LYMPHOCYTES PERCENT MAN 16 % (24-44); MONOCYTES ABSOLUTE MAN 0.56 K/uL (0.00-0.80); MONOCYTES PERCENT MAN 14 % (0-8)
[2024-04-12] MEDS: Sodium Chloride 0.9% 2.5 ML Syringe FLUSH PRN (21:19)
[2024-04-12] MEDS: Ondansetron 4 MG/2 ML SDV IVPUSH ONE (21:19)
[2024-04-12] MEDS: Sodium Chloride 0.9% 10 ML Syringe FLUSH PRN (21:19)
[2024-04-12] MEDS: Aspirin 81 MG Tab.Chew PO ONE (21:19)
[2024-04-12 21:35] LABS: APPEARANCE,URINE CLEAR; BILIRUBIN,URINE NEGATIVE (NEGATIVE); COLOR,URINE YELLOW; GLUCOSE,URINE NEGATIVE (NEGATIVE); KETONES,URINE NEGATIVE (NEGATIVE); LEUKOCYTE ESTERASE,URINE NEGATIVE (NEGATIVE); NITRITE,URINE NEGATIVE (NEGATIVE); OCCULT BLOOD,URINE LARGE (NEGATIVE); PROTEIN,URINE TRACE mg/dL (NEGATIVE); UROBILINOGEN,URINE 0.2 EU/dL (<2.0)
[2024-04-12 21:44] LABS: BACTERIA,URINE FEW (NEGATIVE); EPITHELIAL CELLS,URINE FEW (NONE-FEW); HYALINE CASTS,URINE 0-2 (0-2/LPF); MUCUS,URINE LIGHT (NONE-MOD); WBC,URINE 0-2 (0-5/HPF)
[2024-04-12] MEDS: Iopamidol 755 MG/ML 500 ML Multipack Bottle IVPUSH STA (21:53)
[2024-04-12] MEDS: Furosemide 40 MG/4 ML VIAL IVPUSH ONE ×2 (22:00→22:47)
[2024-04-13] MEDS: Furosemide 40 MG/4 ML VIAL IVPUSH ONE (00:23)
[2024-04-13] MEDS: traZODone 50 MG Tab PO PRN (02:43)
[2024-04-13] MEDS: Magnesium Sulfate/Water Premix 2 GM in Premix Bag 1 BAG IV ONE (03:43)
[2024-04-13] MEDS: Ondansetron 4 MG/2 ML SDV IVPUSH PRN (03:58)
[2024-04-13] MEDS ORDERED: 50% Dextrose in Water 50 ML Syringe IVPUSH PRN (05:20)
[2024-04-13] MEDS ORDERED: Glucagon,Human Recombinant 1 MG Vial IM PRN (05:20)
[2024-04-13] MEDS ORDERED: Polyethylene Glycol 3350 Powder 17 GM Packet PO PRN (05:24)
[2024-04-13] MEDS ORDERED: Acetaminophen 325 MG Tab PO PRN (05:24)
[2024-04-13] MEDS ORDERED: Ondansetron 4 MG/2 ML SDV IVPUSH PRN (05:24)
[2024-04-13] MEDS ORDERED: Melatonin 3 MG Tab PO PRN (05:24)
[2024-04-13 05:47] LABS: HEMATOCRIT 38.8 % (37.0-47.0); HEMOGLOBIN 12.6 g/dL (12.0-16.0); MEAN CORPUSCULAR HEMOGLOBIN 29.4 pg (28.0-32.0); MEAN CORPUSCULAR HGB CONC 32.5 g/dL (32.0-36.0); MEAN CORPUSCULAR VOLUME 90.4 fL (83.0-99.0); MEAN PLATELET VOLUME 9.1 fL (9.4-12.3); PLATELET COUNT,PLT 179 K/uL (150-400); RED BLOOD CELL COUNT 4.29 M/uL (4.10-5.30); WHITE BLOOD CELL COUNT,WBC 3.97 K/uL (3.9-11.3)
[2024-04-13 06:05] LABS: HEMOGLOBIN A1C 6.2 %
[2024-04-13 06:06] LABS: CALCIUM 8.7 mg/dL (8.5-10.1); CARBON DIOXIDE,CO2 27.2 mmol/L (21.0-32.0); CREATININE 1.2 mg/dL (0.6-1.0); EST CRCL DRUG DOSING (CG) 30.89 mL/min; MAGNESIUM 2.2 mg/dL (1.8-2.4); POTASSIUM,K 3.1 mmol/L (3.5-5.1)
[2024-04-13 06:35] LABS: TSH ULTRASENSITIVE 1.68 uIU/mL (0.36-3.74)
[2024-04-13 06:41] LABS: BAND ABSOLUTE MAN 0.24; BAND PERCENT MAN 6 %; BASOPHILS ABSOLUTE MAN 0.04 K/uL (0.00-0.20); BASOPHILS PERCENT MAN 1 % (0-1); LYMPHOCYTES ABSOLUTE MAN 0.67 K/uL (1.00-4.80); LYMPHOCYTES PERCENT MAN 17 % (24-44); MONOCYTES ABSOLUTE MAN 0.56 K/uL (0.00-0.80); MONOCYTES PERCENT MAN 14 % (0-8); SEG NEUTROPHILS ABSOLUTE MAN 2.46 K/uL (1.80-7.70); SEG NEUTROPHILS PERCENT MAN 62 % (41-71)
[2024-04-13] MEDS ORDERED: ClonazePAM 0.5 MG Tab PO PRN (08:17)
[2024-04-13] MEDS: Rosuvastatin 10 MG Tab PO SCH (09:00)
[2024-04-13] MEDS: Potassium Chloride 20 MEQ Tab.ER PO SCH (09:00)
[2024-04-13] MEDS: Famotidine 20 MG Tab PO SCH (09:00)
[2024-04-13] MEDS ORDERED: Pantoprazole 40 MG in Sodium Chloride 0.9% 10 ML IVPUSH SCH (09:00)
[2024-04-13] MEDS ORDERED: Furosemide 40 MG/4 ML VIAL IVPUSH SCH (09:00)
[2024-04-13] MEDS: Heparin Sodium 5,000 Units/ML Vial SUBCUT SCH (09:01)
[2024-04-13] MEDS: Insulin Aspart 100 Units/ML 3 ML Pen SUBCUT SCH (09:12)
[2024-04-13] MEDS: Furosemide 40 MG/4 ML VIAL IVPUSH SCH (09:14)
[2024-04-13] MEDS: Potassium Chloride 20 MEQ Tab.ER PO ONE ×2 (11:21→12:04)
[2024-04-13] MEDS: Sucralfate 1 GM Tab PO SCH (12:04)
[2024-04-13] MEDS: Metoclopramide 10 MG/2 ML SDV IVPUSH PRN (17:43)
[2024-04-14 05:48] LABS: HEMATOCRIT 36.5 % (37.0-47.0); HEMOGLOBIN 12.1 g/dL (12.0-16.0); MEAN CORPUSCULAR HEMOGLOBIN 29.5 pg (28.0-32.0); MEAN CORPUSCULAR HGB CONC 33.2 g/dL (32.0-36.0); MEAN PLATELET VOLUME 8.8 fL (9.4-12.3); PLATELET COUNT,PLT 191 K/uL (150-400); WHITE BLOOD CELL COUNT,WBC 4.64 K/uL (3.9-11.3)
[2024-04-14 06:14] LABS: CALCIUM 8.7 mg/dL (8.5-10.1); CARBON DIOXIDE,CO2 29.1 mmol/L (21.0-32.0); CREATININE 1.1 mg/dL (0.6-1.0); EST CRCL DRUG DOSING (CG) 33.69 mL/min; POTASSIUM,K 3.2 mmol/L (3.5-5.1)
[2024-04-14 06:41] LABS: SEG NEUTROPHILS ABSOLUTE MAN 2.18 K/uL (1.80-7.70); SEG NEUTROPHILS PERCENT MAN 47 % (41-71)
[2024-04-14 06:44] LABS: BAND ABSOLUTE MAN 0.56; BAND PERCENT MAN 12 %; LYMPHOCYTES ABSOLUTE MAN 1.11 K/uL (1.00-4.80); LYMPHOCYTES PERCENT MAN 24 % (24-44); MONOCYTES ABSOLUTE MAN 0.79 K/uL (0.00-0.80); MONOCYTES PERCENT MAN 17 % (0-8)
[2024-04-14] MEDS: Empagliflozin 10 MG Tab PO SCH (13:41)
[2024-04-14] MEDS: Potassium Chloride 20 MEQ Tab.ER PO ONE (13:41)
[2024-04-15 06:19] LABS: HEMATOCRIT 37.8 % (37.0-47.0); HEMOGLOBIN 12.7 g/dL (12.0-16.0); MEAN CORPUSCULAR HEMOGLOBIN 29.7 pg (28.0-32.0); MEAN CORPUSCULAR HGB CONC 33.6 g/dL (32.0-36.0); MEAN CORPUSCULAR VOLUME 88.5 fL (83.0-99.0); MEAN PLATELET VOLUME 9.1 fL (9.4-12.3); PLATELET COUNT,PLT 218 K/uL (150-400); RED BLOOD CELL COUNT 4.27 M/uL (4.10-5.30); WHITE BLOOD CELL COUNT,WBC 6.54 K/uL (3.9-11.3)
[2024-04-15 06:40] LABS: CALCIUM 9.1 mg/dL (8.5-10.1); CARBON DIOXIDE,CO2 31.9 mmol/L (21.0-32.0); CREATININE 1.2 mg/dL (0.6-1.0); EST CRCL DRUG DOSING (CG) 30.89 mL/min; POTASSIUM,K 3.6 mmol/L (3.5-5.1)
[2024-04-15 07:21] LABS: BAND ABSOLUTE MAN 1.05; BAND PERCENT MAN 16 %; EOSINOPHILS PERCENT MAN 3 % (0-6); LYMPHOCYTES ABSOLUTE MAN 1.77 K/uL (1.00-4.80); LYMPHOCYTES PERCENT MAN 27 % (24-44); MONOCYTES ABSOLUTE MAN 0.85 K/uL (0.00-0.80); MONOCYTES PERCENT MAN 13 % (0-8); SEG NEUTROPHILS ABSOLUTE MAN 2.68 K/uL (1.80-7.70); SEG NEUTROPHILS PERCENT MAN 41 % (41-71)
== END 2024-04-15 11:55 | disposition home or self-care (01) | DRG 291 ==
LOC: MW.ED 19:01 → MW.MS 04-13 00:12
PROVIDERS: ADMIT Family Medicine; ATTEND Family Medicine
DX: I11.0 Hypertensive heart disease with heart failure (principal); I50.31 Acute diastolic (congestive) heart failure; J96.01 Acute respiratory failure with hypoxia; I50.9 Heart failure, unspecified; N17.9 Acute kidney failure, unspecified; E11.9 Type 2 diabetes mellitus without complications; I25.10 Atherosclerotic heart disease of native coronary artery without angina pectoris; E66.9 Obesity, unspecified; I25.2 Old myocardial infarction; Z88.8 Allergy status to other drugs, medicaments and biological substances; M19.90 Unspecified osteoarthritis, unspecified site; H54.7 Unspecified visual loss; I44.7 Left bundle-branch block, unspecified; E83.42 Hypomagnesemia; R79.89 Other specified abnormal findings of blood chemistry; Z88.1 Allergy status to other antibiotic agents; Z68.35 Body mass index [BMI] 35.0-35.9, adult; Z98.49 Cataract extraction status, unspecified eye; Z90.89 Acquired absence of other organs; Z90.49 Acquired absence of other specified parts of digestive tract; Z96.659 Presence of unspecified artificial knee joint; Z90.710 Acquired absence of both cervix and uterus; Z79.899 Other long term (current) drug therapy
CPT/HCPCS: 36415; 70450; 70496; 70498; 71045; 71275; 72131; 80053; 81001; 83735; 83880; 84484 ×2; 85025; 85379; 87428; 93005; 96374; 96375; 99285; A9270; J1940; J2405; J3490; Q9967; 80048; 80061; 82550; 82607; 82947; 83036; 84443; 93010; 93306; 97161-GP; 99223; 99232; 99238; J1644; J1815-GY; J2765; J3475

== ENCOUNTER 2024-08-24 13:00 | Observation (INO) | payer MEDICARE, OTHER ==
[2024-08-24] MEDS ORDERED: Midazolam 5 MG/ML SDV IM PRN (13:15)
[2024-08-24] MEDS ORDERED: droPERidol 2.5 MG/ML SDV IM ONE (13:25)
[2024-08-24 13:42] LABS: BASOPHILS ABSOLUTE AUTO 0.01 K/uL (0.00-0.20); BASOPHILS PERCENT AUTO 0.2 % (0.0-1.0); EOSINOPHILS ABSOLUTE AUTO 0.02 K/uL (0.00-0.45); EOSINOPHILS PERCENT AUTO 0.4 % (0.0-6.0); HEMATOCRIT 41.7 % (37.0-47.0); HEMOGLOBIN 14.2 g/dL (12.0-16.0); IMMATURE GRAN ABSOLUTE AUTO 0.01 K/uL (0.00-0.05); IMMATURE GRAN PERCENT AUTO 0.2 % (0.0-0.4); LYMPHOCYTES ABSOLUTE AUTO 0.98 K/uL (1.00-4.80); LYMPHOCYTES PERCENT AUTO 17.8 % (24.0-44.0); MEAN CORPUSCULAR HEMOGLOBIN 30.1 pg (28.0-32.0); MEAN CORPUSCULAR HGB CONC 34.1 g/dL (32.0-36.0); MEAN CORPUSCULAR VOLUME 88.3 fL (83.0-99.0); MEAN PLATELET VOLUME 8.9 fL (9.4-12.3); MONOCYTES ABSOLUTE AUTO 0.46 K/uL (0.00-0.80); MONOCYTES PERCENT AUTO 8.3 % (0.0-8.0); NEUTROPHILS ABSOLUTE AUTO 4.04 K/uL (1.80-7.70); NEUTROPHILS PERCENT AUTO 73.1 % (41.0-71.0); PLATELET COUNT,PLT 201 K/uL (150-400); RED BLOOD CELL COUNT 4.72 M/uL (4.10-5.30); WHITE BLOOD CELL COUNT,WBC 5.52 K/uL (3.9-11.3)
[2024-08-24 14:00] LABS: A/G RATIO 1.1 (0.9-1.6); ALANINE AMINOTRANSFERASE,ALT 21 IU/L (14-63); ALBUMIN 4.3 g/dL (3.4-5.0); ALKALINE PHOSPHATASE 94 U/L (46-116); ASPARTATE AMNIOTRANSFERASE,AST 14 IU/L (15-37); BILIRUBIN TOTAL 0.7 mg/dL (0.2-1.0); BLOOD UREA NITROGEN,BUN 17 mg/dL (7.0-18.0); CALCIUM 10.3 mg/dL (8.5-10.1); CARBON DIOXIDE,CO2 24.4 mmol/L (21.0-32.0); CHLORIDE,CL 96 mmol/L (98-107); CREATININE 1.2 mg/dL (0.6-1.0); GLUCOSE RANDOM 121 mg/dL (74-106); LIPASE 66 U/L (16-77); MAGNESIUM 1.8 mg/dL (1.8-2.4); POTASSIUM,K 3.8 mmol/L (3.5-5.1); PRO B-TYPE NATRIUR PEPT,BNPPRO 114 pg/mL (0-125); PROTEIN TOTAL,TP 8.3 g/dL (6.4-8.2); SODIUM,NA 134 mmol/L (136-145)
[2024-08-24 14:03] LABS: ESTIMATED GFR 48 mL/min (>60)
[2024-08-24 14:48] LABS: APPEARANCE,URINE CLEAR; BILIRUBIN,URINE NEGATIVE (NEGATIVE); COLOR,URINE YELLOW; GLUCOSE,URINE 500 mg/dL (NEGATIVE); KETONES,URINE NEGATIVE (NEGATIVE); LEUKOCYTE ESTERASE,URINE NEGATIVE (NEGATIVE); NITRITE,URINE NEGATIVE (NEGATIVE); OCCULT BLOOD,URINE NEGATIVE (NEGATIVE); PH,URINE 5.5 (5.0-8.0); PROTEIN,URINE NEGATIVE (NEGATIVE); UROBILINOGEN,URINE 0.2 EU/dL (<2.0)
[2024-08-24] MEDS ORDERED: Sodium Chloride 0.9% 500 ML IV SCH (15:00)
[2024-08-24] MEDS: Polyethylene Glycol 3350 Powder 17 GM Packet PO ONE (15:05)
[2024-08-24] MEDS: Sodium Chloride 0.9% 500 ML IV ONE ×2 (15:20→20:13)
[2024-08-24] MEDS ORDERED: Acetaminophen 325 MG Tab PO PRN (17:27)
[2024-08-24] MEDS ORDERED: Sodium Chloride 0.9% 1,000 ML IV SCH (18:00)
[2024-08-24 18:32] LABS: TSH ULTRASENSITIVE 1.57 uIU/mL (0.36-3.74)
[2024-08-24 18:37] LABS: HEMOGLOBIN A1C 6.5 %
[2024-08-24] MEDS ORDERED: 50% Dextrose in Water 50 ML Syringe IVPUSH PRN (18:48)
[2024-08-24] MEDS ORDERED: Glucagon,Human Recombinant 1 MG Vial IM PRN (18:48)
[2024-08-24] MEDS: Sucralfate 1 GM Tab PO SCH (20:13)
[2024-08-24] MEDS: Docusate Sodium 100 MG Cap PO SCH (20:13)
[2024-08-24] MEDS: Famotidine 20 MG Tab PO SCH (20:13)
[2024-08-24] MEDS: Polyethylene Glycol 3350 Powder 17 GM Packet PO SCH (20:13)
[2024-08-24] MEDS: traZODone 50 MG Tab PO PRN (22:50)
[2024-08-25 05:46] LABS: BASOPHILS ABSOLUTE AUTO 0.01 K/uL (0.00-0.20); BASOPHILS PERCENT AUTO 0.3 % (0.0-1.0); EOSINOPHILS ABSOLUTE AUTO 0.06 K/uL (0.00-0.45); EOSINOPHILS PERCENT AUTO 1.6 % (0.0-6.0); HEMOGLOBIN 12.8 g/dL (12.0-16.0); IMMATURE GRAN ABSOLUTE AUTO 0.02 K/uL (0.00-0.05); IMMATURE GRAN PERCENT AUTO 0.5 % (0.0-0.4); LYMPHOCYTES ABSOLUTE AUTO 0.97 K/uL (1.00-4.80); LYMPHOCYTES PERCENT AUTO 26.4 % (24.0-44.0); MEAN CORPUSCULAR HEMOGLOBIN 29.5 pg (28.0-32.0); MEAN CORPUSCULAR HGB CONC 32.8 g/dL (32.0-36.0); MEAN CORPUSCULAR VOLUME 89.9 fL (83.0-99.0); MEAN PLATELET VOLUME 8.7 fL (9.4-12.3); MONOCYTES ABSOLUTE AUTO 0.39 K/uL (0.00-0.80); MONOCYTES PERCENT AUTO 10.6 % (0.0-8.0); NEUTROPHILS ABSOLUTE AUTO 2.22 K/uL (1.80-7.70); NEUTROPHILS PERCENT AUTO 60.6 % (41.0-71.0); PLATELET COUNT,PLT 173 K/uL (150-400); RED BLOOD CELL COUNT 4.34 M/uL (4.10-5.30); WHITE BLOOD CELL COUNT,WBC 3.67 K/uL (3.9-11.3)
[2024-08-25] MEDS: Heparin Sodium 5,000 Units/ML Vial SUBCUT SCH (05:51)
[2024-08-25 06:11] LABS: ALBUMIN 3.4 g/dL (3.4-5.0); BILIRUBIN TOTAL 0.6 mg/dL (0.2-1.0); CALCIUM 9.3 mg/dL (8.5-10.1); CARBON DIOXIDE,CO2 27.4 mmol/L (21.0-32.0); CREATININE 1.1 mg/dL (0.6-1.0); EST CRCL DRUG DOSING (CG) 35.4 mL/min; MAGNESIUM 1.7 mg/dL (1.8-2.4); POTASSIUM,K 3.5 mmol/L (3.5-5.1); PROTEIN TOTAL,TP 6.7 g/dL (6.4-8.2)
[2024-08-25] MEDS: Insulin Aspart 100 Units/ML 3 ML Pen SUBCUT SCH (07:37)
[2024-08-25] MEDS: Potassium Chloride 20 MEQ Tab.ER PO SCH (08:19)
[2024-08-25] MEDS: Spironolactone 25 MG Tab PO SCH (08:19)
[2024-08-25] MEDS: Rosuvastatin 10 MG Tab PO SCH (08:20)
[2024-08-25] MEDS: Bisacodyl 5 MG Tab PO SCH (08:20)
[2024-08-25] MEDS: Empagliflozin 10 MG Tab PO SCH (08:20)
[2024-08-25] MEDS: Magnesium Sulf/Wat 2 GM/50 mL 2 GM in Premix Bag 1 BAG IV ONE (08:32)
[2024-08-25] MEDS: Sennosides/Docusate Sodium 50-8.6 MG Tab PO PRN (11:54)
[2024-08-25] MEDS: Magnesium Hydroxide 400 MG/5 ML Susp 30 ML Cup PO ONE (11:55)
== END 2024-08-25 17:05 | disposition home or self-care (01) ==
LOC: MW.ED 13:00 → MW.MS 16:43
PROVIDERS: ADMIT Internal Medicine; ATTEND Internal Medicine
DX: I95.1 Orthostatic hypotension (principal); K59.09 Other constipation; I10 Essential (primary) hypertension; I25.10 Atherosclerotic heart disease of native coronary artery without angina pectoris; E11.9 Type 2 diabetes mellitus without complications; E66.9 Obesity, unspecified; Z79.84 Long term (current) use of oral hypoglycemic drugs; Z79.899 Other long term (current) drug therapy
CPT/HCPCS: 36415; 70551; 74018; 80053; 81003; 82947; 83036; 83690; 83735; 83880; 84443; 84484; 85025; 93005; 96360; 99285; A9270; J1644; J3475; J7030; 93010; 96361; 96365; 96366; 96372; 99222; 99239; 99284; G0378

== ENCOUNTER 2024-12-25 17:09 | Emergency (ER) | payer MEDICARE, OTHER | END 2024-12-25 18:19 | disposition home or self-care (01) | LOC: MW.ED 17:09 | DX: K59.00 Constipation, unspecified (principal); I10 Essential (primary) hypertension; I25.2 Old myocardial infarction; E66.9 Obesity, unspecified; E11.9 Type 2 diabetes mellitus without complications; Z88.8 Allergy status to other drugs, medicaments and biological substances; Z79.899 Other long term (current) drug therapy; Z90.49 Acquired absence of other specified parts of digestive tract; Z90.710 Acquired absence of both cervix and uterus; Z68.28 Body mass index [BMI] 28.0-28.9, adult | CPT/HCPCS: 99282; 99283 ==